=== PATIENT | female | born 1965 | race Hispanic/Latino ===

== ENCOUNTER 2020-08-07 14:32 | Inpatient (IN) | payer BC, OTHER ==
[~2020-08-07] VITALS: Ht 154.9 cm; Wt 85.9 kg
[2020-08-07 15:11] LABS: BASOPHILS % (AUTO) 0.4 % (0.0-5.0); EOSINOPHILS % (AUTO) 2.5 % (0.0-8.0); HEMATOCRIT 41.5 % (36-48); LYMPHOCYTES % (AUTO) 24.7 % (21.0-51.0); MEAN CORPUSCULAR HEMOGLOBIN 31.8 pg (27.0-33.0); MEAN CORPUSCULAR HGB CONC 33.3 g/dL (32.0-36.0); MEAN CORPUSCULAR VOLUME 95.6 fL (79-99); MONOCYTES % (AUTO) 8.4 % (3.0-13.0); NEUTROPHILS % (AUTO) 63.7 % (40.0-77.0); PLATELET COUNT (AUTO) 190 K/uL (130-400); RED BLOOD CELL COUNT(AUTO) 4.34 MIL/uL (4.00-5.50); RED CELL DISTRIBUTION WIDTH 12.3 % (11.0-15.5); WHITE BLOOD COUNT (AUTO) 7.5 K/uL (4.8-10.8)
[2020-08-07 15:30] LABS: INR 0.94 (0.85-1.15); PARTIAL THROMBOPLASTIN TIME 27.1 SEC (26.3-35.5); PROTHROMBIN TIME 10.2 SEC (9.6-11.6)
[2020-08-07 15:33] LABS: ALBUMIN 3.7 g/dL (3.5-5.0); BILIRUBIN,TOTAL 0.4 mg/dL (0.2-1.0); CREATININE 0.8 mg/dL (0.5-1.5); POTASSIUM 3.8 mmol/L (3.5-5.1); TOTAL PROTEIN, SERUM 7.7 g/dL (6.0-8.3)
[2020-08-07] MEDS ORDERED: VANCOMYCIN 1GM+NS 250ML 250 ML IV ONE (15:44)
[2020-08-07] MEDS ORDERED: GLUCAGON 1MG KIT 1 MG ML IM PRN (17:30)
[2020-08-07] MEDS ORDERED: ACETAMINOPHEN 325 MG TAB PO PRN ×2 (17:30)
[2020-08-07] MEDS ORDERED: MAG HYDROX/AL HYDROX/SIMETH ES 30 ML SUSP UDCUP PO PRN (17:30)
[2020-08-07] MEDS ORDERED: METOPROLOL TARTRATE 1 MG/ML 5ML VIAL IV PRN (17:30)
[2020-08-07] MEDS ORDERED: VANCOMYCIN 1GM+NS 250ML IV SCH (17:30)
[2020-08-07] MEDS ORDERED: DEXTROSE 50%-WATER 50 ML DISP.SYRIN IV PRN (17:30)
[2020-08-07] MEDS ORDERED: LABETALOL HCL 5 MG/ML 20ML VIAL IV PRN (17:30)
[2020-08-07] MEDS ORDERED: NITROGLYCERIN 0.4 MG SL TAB SL PRN (17:30)
[2020-08-07] MEDS ORDERED: GUAIFENESIN-DM 200/20 MG 10 ML PO PRN (17:30)
[2020-08-07] MEDS ORDERED: VANCOMYCIN PROTOCOL PER PHARMACY IV SCH (18:00)
[2020-08-07] MEDS: VANCOMYCIN 1GM+NS 250ML 250 ML IV SCH (18:00)
[2020-08-07] MEDS ORDERED: MORPHINE SULFATE 2 MG/ML 1ML SYG IVP PRN (18:45)
[2020-08-07] MEDS ORDERED: ACETAMINOPHEN-CODEINE 300/30MG TAB ONE (18:48)
[2020-08-07 18:49] LABS: APPEARANCE,URINE Cloudy (CLEAR); BILIRUBIN,URINE Negative (NEGATIVE); COLOR,URINE Yellow (YELLOW); GLUCOSE, URINE (UA) Negative (NEGATIVE); KETONES,URINE Trace mg/dL (NEGATIVE); LEUKOCYTE ESTERASE ,URINE Negative (NEGATIVE); NITRATE,URINE Negative (NEGATIVE); OCCULT BLOOD,URINE Negative (NEGATIVE); PROTEIN,URINE Negative (NEGATIVE)
[2020-08-07 19:19] LABS: BACTERIA,URINE Few /HPF (None Seen); RBC,URINE 0-1 /HPF (0-1); WBC,URINE 0-1 /HPF (0-1)
[2020-08-07 19:20] LABS: SQUAMOUS EPITHELIAL CELL,UR Moderate /HPF (0-2)
[2020-08-07] MEDS: DOXYCYCLINE 100MG+NS 250ML 250 ML IV SCH (21:00)
[2020-08-07] MEDS ORDERED: DOXYCYCLINE 100MG+NS 250ML IV SCH (21:00)
[2020-08-07] MEDS: FAMOTIDINE 20MG TAB 20 MG TAB PO SCH (21:00)
[2020-08-07] MEDS: INSULIN HUMULIN R 100 UNIT/ML 3ML SQ SCH (21:00)
[2020-08-07 22:55] VITALS: BP 160/86
--- NOTE | 2020-08-07 23:00 | NUR ---
ADMIT NOTE ADMIT TO ROOM 304 VIA STRETCHER FROM ER. PATIENT AWAKE, ALERT, OX3, NO SOB, C/O PAIN SEE PAIN ASSESSMENT AND TREATMENT, LLE WITH CELLULITIS WITH NECROSIS, SEE WOUND ASSESSMENT,FOUL SMELLING DRAINING SEROS SANGUINOUS DRAINAGE, TEACH PATIENT PLAN OF CARE AND EXPECTED OUTCOME, PATIENT VERBALIZES UNDERSTANDING VIA TEACH BACK
[2020-08-08 03:48] VITALS: BP 152/72
[2020-08-08] MEDS: VANCOMYCIN 1GM+NS 250ML 250 ML IV SCH ×2 (05:10→18:22)
[2020-08-08 05:24] LABS: BASOPHILS % (AUTO) 0.5 % (0.0-5.0); EOSINOPHILS % (AUTO) 3.5 % (0.0-8.0); HEMATOCRIT 37.8 % (36-48); LYMPHOCYTES % (AUTO) 32.4 % (21.0-51.0); MEAN CORPUSCULAR HEMOGLOBIN 31.9 pg (27.0-33.0); MEAN CORPUSCULAR HGB CONC 33.3 g/dL (32.0-36.0); MEAN CORPUSCULAR VOLUME 95.7 fL (79-99); MONOCYTES % (AUTO) 8.8 % (3.0-13.0); NEUTROPHILS % (AUTO) 54.5 % (40.0-77.0); PLATELET COUNT (AUTO) 146 K/uL (130-400); RED BLOOD CELL COUNT(AUTO) 3.95 MIL/uL (4.00-5.50); RED CELL DISTRIBUTION WIDTH 12.2 % (11.0-15.5); WHITE BLOOD COUNT (AUTO) 6.2 K/uL (4.8-10.8)
[2020-08-08 05:53] LABS: BILIRUBIN,DIRECT 0.1 mg/dL (0.0-0.3); BILIRUBIN,TOTAL 0.6 mg/dL (0.2-1.0); CREATININE 0.6 mg/dL (0.5-1.5); POTASSIUM 3.6 mmol/L (3.5-5.1); TOTAL PROTEIN, SERUM 6.5 g/dL (6.0-8.3)
[2020-08-08] MEDS: INSULIN HUMULIN R 100 UNIT/ML 3ML SQ SCH ×4 (05:57→21:00)
[2020-08-08 08:02] VITALS: BP 165/73
[2020-08-08] MEDS: FAMOTIDINE 20MG TAB 20 MG TAB PO SCH ×2 (08:46→21:09)
[2020-08-08] MEDS: ACETAMINOPHEN-CODEINE 300/30MG TAB PO PRN ×3 (08:46→23:05)
[2020-08-08] MEDS: DOXYCYCLINE 100MG+NS 250ML 250 ML IV SCH ×2 (09:00→22:56)
[2020-08-08 11:32] VITALS: BP 164/55
--- NOTE | 2020-08-08 13:02 | NUR ---
KRISTEL SAUNDERS/IA MET WITH PATIENT IN ROOM. PER PATIENT, LIVES WITH DAUGHTER, INDEPENDENT WITH ADLS, NO USE OF DME, NO PROVIDER OR HOME HEALTH, DRIVES OR OBTAINS RIDES TO DOCTORS OFFICES AND FEELS SAFE TO RETURN HOME AFTER HOSPITAL DISCHARGE. Addendum: 08/08/20 at 1303 by REILLY GUERRERO RN CM Amended: Links added.
[2020-08-08] MEDS: NIFEDIPINE 10 MG CAP PO SCH ×2 (13:38→21:00)
[2020-08-08] MEDS: LEVOFLOXACIN 500 MG/D5W 100 ML 100 ML IV SCH (13:39)
[2020-08-08] MEDS: METRONIDAZOLE 500MG/100ML BAG 100 ML IVPB SCH ×2 (13:39→21:09)
[2020-08-08 16:11] VITALS: BP 132/73
[2020-08-08] MEDS: ENOXAPARIN SODIUM 30 MG/0.3 ML SQ SCH (16:26)
--- NOTE | 2020-08-08 16:30 | NUR ---
[facility] CONSULT Patient assessed by wound healing center team. See patient wound assessment. Assessment and recommendations discussed with primary nurse. Orders entered. Education provided. Addendum: 08/08/20 at 1633 by REYNALDO HOLT RN RN/ Amended: Links added.
[2020-08-08 17:45] LABS: HEMOGLOBIN A1C 6.2 % (4.0-6.0)
[2020-08-08 20:00] VITALS: BP 127/55
[2020-08-08 23:20] VITALS: BP 151/73
[2020-08-09 03:51] VITALS: BP 113/62
[2020-08-09] MEDS: METRONIDAZOLE 500MG/100ML BAG 100 ML IVPB SCH ×3 (05:46→21:04)
[2020-08-09] MEDS: INSULIN HUMULIN R 100 UNIT/ML 3ML SQ SCH ×4 (05:54→21:00)
[2020-08-09] MEDS: ONDANSETRON HCL 4 MG/2 ML VIAL IV PRN (06:14)
[2020-08-09] MEDS: ACETAMINOPHEN-CODEINE 300/30MG TAB PO PRN ×3 (06:15→18:46)
[2020-08-09] MEDS: VANCOMYCIN 1GM+NS 250ML 250 ML IV SCH ×2 (07:18→17:22)
[2020-08-09 08:00] VITALS: BP 120/63
[2020-08-09] MEDS: DOXYCYCLINE 100MG+NS 250ML 250 ML IV SCH (10:13)
[2020-08-09] MEDS: FAMOTIDINE 20MG TAB 20 MG TAB PO SCH ×2 (10:14→21:04)
[2020-08-09] MEDS: LEVOFLOXACIN 500 MG/D5W 100 ML 100 ML IV SCH (10:14)
[2020-08-09] MEDS: ENOXAPARIN SODIUM 30 MG/0.3 ML SQ SCH (10:14)
[2020-08-09] MEDS: NIFEDIPINE 10 MG CAP PO SCH ×3 (10:14→20:37)
[2020-08-09 12:00] VITALS: BP 140/72
--- NOTE | 2020-08-09 14:00 | NUR ---
Afternoon dose of Nifedipine held d/t heart rate of 55 - per MD parameters, must hold if below 60. Will continue to monitor
[2020-08-09 16:00] VITALS: BP 122/73
--- NOTE | 2020-08-09 17:17 | NUR ---
RD NOTIFICATION Pt admitted with Left Leg cellulitis with Necrosis. Pt with 75gm CC diet order in place. No report of GI distress. Medical history of DM, HTN. Obesity Class II. Monitoring protein status and BG labs values. Left leg wound. Pt drinks alcohol and recreationally uses drugs as per EMR. Penicillin medication allergy. Recommend continue current diet order. Recommend Rolando BID, 500mg Vitamin C BID, 220mg Zinc QD for wound healing support. RD to follow up for nutrition education evaluation.
[2020-08-09 19:33] VITALS: BP 134/64
[2020-08-09 23:27] VITALS: BP 140/54
[2020-08-10 04:00] VITALS: BP 136/61
[2020-08-10] MEDS: METRONIDAZOLE 500MG/100ML BAG 100 ML IVPB SCH ×3 (05:48→21:22)
[2020-08-10] MEDS: INSULIN HUMULIN R 100 UNIT/ML 3ML SQ SCH ×4 (05:49→20:52)
[2020-08-10 05:55] LABS: BASOPHILS % (AUTO) 0.5 % (0.0-5.0); EOSINOPHILS % (AUTO) 4.9 % (0.0-8.0); HEMATOCRIT 38.1 % (36-48); LYMPHOCYTES % (AUTO) 22.4 % (21.0-51.0); MEAN CORPUSCULAR HEMOGLOBIN 31.9 pg (27.0-33.0); MEAN CORPUSCULAR HGB CONC 33.9 g/dL (32.0-36.0); MEAN CORPUSCULAR VOLUME 94.1 fL (79-99); MONOCYTES % (AUTO) 7.8 % (3.0-13.0); NEUTROPHILS % (AUTO) 63.9 % (40.0-77.0); PLATELET COUNT (AUTO) 147 K/uL (130-400); RED BLOOD CELL COUNT(AUTO) 4.05 MIL/uL (4.00-5.50); RED CELL DISTRIBUTION WIDTH 11.9 % (11.0-15.5); WHITE BLOOD COUNT (AUTO) 5.8 K/uL (4.8-10.8)
[2020-08-10 06:13] LABS: CARBON DIOXIDE 28 mmol/L (21-32); CHLORIDE 105 mmol/L (101-111); CREATININE 0.6 mg/dL (0.5-1.5); GLOMERULAR FILTR. RATE CALC 112 mL/min (>60); GLUCOSE,RANDOM 103 mg/dL (70-105); POTASSIUM 3.7 mmol/L (3.5-5.1); SODIUM SERUM 139 mmol/L (136-145); UREA NITROGEN, BLOOD 13 mg/dL (7-18)
[2020-08-10] MEDS: VANCOMYCIN 1GM+NS 250ML 250 ML IV SCH ×2 (06:43→17:47)
[2020-08-10] MEDS: ONDANSETRON HCL 4 MG/2 ML VIAL IV PRN (06:45)
[2020-08-10 07:37] LABS: ERYTHROCYTE SEDIMENTATION RATE 20 MM/HR (0-30)
[2020-08-10 08:00] VITALS: BP 161/69
[2020-08-10] MEDS: FAMOTIDINE 20MG TAB 20 MG TAB PO SCH ×2 (09:11→21:22)
[2020-08-10] MEDS: NIFEDIPINE ER 30 MG TAB PO SCH (09:11)
[2020-08-10] MEDS: ENOXAPARIN SODIUM 30 MG/0.3 ML SQ SCH (09:12)
[2020-08-10] MEDS: LEVOFLOXACIN 500 MG/D5W 100 ML 100 ML IV SCH (10:23)
[2020-08-10] MEDS ORDERED: MAGNESIUM 2GM PREMIX 50ML 50 ML IV SCH (10:30)
[2020-08-10] MEDS: LISINOPRIL 10 MG TABLET PO SCH (10:36)
[2020-08-10 12:00] VITALS: BP 134/59
[2020-08-10 16:00] VITALS: BP 143/64
[2020-08-10] MEDS: ACETAMINOPHEN-CODEINE 300/30MG TAB PO PRN (16:31)
--- NOTE | 2020-08-10 18:13 | NUR ---
DRESSING CHANGE DID DRESSING CHANGE TO LEFT LOWER EXTREMITY: CLEANSED WITH SALINE, GENTLY PAT DRY. PAINT WITH BETADINE, COVER WITH 4X4'S AND KERLIX, SECURED WITH TAPE. PATIENT TOLERATED WITHOUT INCIDENT.
[2020-08-10 19:34] VITALS: BP 116/53
[2020-08-11] VITALS: BP_SYST 138; BP_SYST 139; BP_DIAS 65; BP_DIAS 85
[2020-08-11 03:39] VITALS: BP 158/72
[2020-08-11] MEDS: METRONIDAZOLE 500MG/100ML BAG 100 ML IVPB SCH ×3 (05:36→19:54)
[2020-08-11 06:05] LABS: BASOPHILS % (AUTO) 0.8 % (0.0-5.0); EOSINOPHILS % (AUTO) 4.4 % (0.0-8.0); HEMATOCRIT 36.6 % (36-48); LYMPHOCYTES % (AUTO) 25.7 % (21.0-51.0); MEAN CORPUSCULAR HGB CONC 33.9 g/dL (32.0-36.0); MEAN CORPUSCULAR VOLUME 94.6 fL (79-99); MONOCYTES % (AUTO) 8.2 % (3.0-13.0); NEUTROPHILS % (AUTO) 60.6 % (40.0-77.0); PLATELET COUNT (AUTO) 144 K/uL (130-400); RED BLOOD CELL COUNT(AUTO) 3.87 MIL/uL (4.00-5.50); RED CELL DISTRIBUTION WIDTH 12.1 % (11.0-15.5); WHITE BLOOD COUNT (AUTO) 6.6 K/uL (4.8-10.8)
[2020-08-11] MEDS: ONDANSETRON HCL 4 MG/2 ML VIAL IV PRN (06:21)
[2020-08-11] MEDS: INSULIN HUMULIN R 100 UNIT/ML 3ML SQ SCH ×4 (06:38→19:54)
[2020-08-11 06:55] LABS: CREATININE 0.7 mg/dL (0.5-1.5); POTASSIUM 3.7 mmol/L (3.5-5.1)
[2020-08-11 07:00] LABS: CRP QUANTITATIVE 8.5 mg/L (0.00-9.0)
[2020-08-11 07:23] LABS: ERYTHROCYTE SEDIMENTATION RATE 6 MM/HR (0-30)
[2020-08-11] MEDS: VANCOMYCIN 1GM+NS 250ML 250 ML IV SCH ×2 (07:56→18:00)
[2020-08-11 08:00] VITALS: BP 140/73
[2020-08-11] MEDS: FAMOTIDINE 20MG TAB 20 MG TAB PO SCH ×2 (08:51→19:53)
[2020-08-11] MEDS: MAGNESIUM OXIDE 400 MG TABLET PO SCH (08:51)
[2020-08-11] MEDS: NIFEDIPINE ER 30 MG TAB PO SCH (08:51)
[2020-08-11] MEDS: ENOXAPARIN SODIUM 30 MG/0.3 ML SQ SCH (08:52)
[2020-08-11] MEDS: LISINOPRIL 10 MG TABLET PO SCH (08:53)
[2020-08-11] MEDS: LEVOFLOXACIN 500 MG/D5W 100 ML 100 ML IV SCH (11:28)
[2020-08-11 11:54] VITALS: BP 143/51
[2020-08-11] MEDS ORDERED: VANCOMYCIN 750MG + NS 250 ML IV SCH ×2 (12:00)
[2020-08-11] MEDS ORDERED: COMPOUND IV REFRIGERATED 1 EACH IVSOLN MISC PRN (13:45)
[2020-08-11 16:00] VITALS: BP 119/58
[2020-08-11 19:00] VITALS: BP 142/63
[2020-08-12] VITALS (24 sets, daily range): BP systolic 96–158; BP diastolic 54–81
[2020-08-12] MEDS: METRONIDAZOLE 500MG/100ML BAG 100 ML IVPB SCH ×3 (05:11→21:54)
[2020-08-12] MEDS: VANCOMYCIN 1GM+NS 250ML 250 ML IV SCH ×2 (05:11→17:41)
[2020-08-12] MEDS: INSULIN HUMULIN R 100 UNIT/ML 3ML SQ SCH ×4 (05:11→20:05)
[2020-08-12 05:22] LABS: BASOPHILS % (AUTO) 0.6 % (0.0-5.0); EOSINOPHILS % (AUTO) 3.8 % (0.0-8.0); HEMATOCRIT 37.7 % (36-48); LYMPHOCYTES % (AUTO) 28.8 % (21.0-51.0); MEAN CORPUSCULAR HEMOGLOBIN 31.2 pg (27.0-33.0); MEAN CORPUSCULAR HGB CONC 33.2 g/dL (32.0-36.0); MONOCYTES % (AUTO) 9.1 % (3.0-13.0); NEUTROPHILS % (AUTO) 57.4 % (40.0-77.0); PLATELET COUNT (AUTO) 146 K/uL (130-400); RED BLOOD CELL COUNT(AUTO) 4.01 MIL/uL (4.00-5.50); RED CELL DISTRIBUTION WIDTH 12.2 % (11.0-15.5); WHITE BLOOD COUNT (AUTO) 6.4 K/uL (4.8-10.8)
[2020-08-12 05:50] LABS: CREATININE 0.7 mg/dL (0.5-1.5); CRP QUANTITATIVE 9.3 mg/L (0.00-9.0); POTASSIUM 3.7 mmol/L (3.5-5.1)
[2020-08-12 06:38] LABS: ERYTHROCYTE SEDIMENTATION RATE 5 MM/HR (0-30)
[2020-08-12] MEDS: ONDANSETRON HCL 4 MG/2 ML VIAL IV PRN (07:53)
[2020-08-12] MEDS: ENOXAPARIN SODIUM 30 MG/0.3 ML SQ SCH (08:56)
[2020-08-12] MEDS: MAGNESIUM OXIDE 400 MG TABLET PO SCH (08:57)
[2020-08-12] MEDS: FAMOTIDINE 20MG TAB 20 MG TAB PO SCH ×2 (08:57→20:03)
[2020-08-12] MEDS: NIFEDIPINE ER 30 MG TAB PO SCH (09:00)
[2020-08-12] MEDS: LISINOPRIL 10 MG TABLET PO SCH (09:00)
[2020-08-12] MEDS: LEVOFLOXACIN 500 MG/D5W 100 ML 100 ML IV SCH (10:29)
[2020-08-12] MEDS ORDERED: SODIUM CHLORIDE 0.9% 1000ML 1,000 ML IV ONE (13:30)
[2020-08-12] MEDS ORDERED: DEXAMETHASONE SOD PHOSPHATE 10MG/ML 1ML VIAL ONE (13:57)
[2020-08-12] MEDS ORDERED: LIDOCAINE PF 2% 5ML ABBOJECT ONE (13:58)
[2020-08-12] MEDS ORDERED: PROPOFOL 10 MG/ML 20ML VIAL IV ONE (13:58)
[2020-08-12] MEDS ORDERED: MIDAZOLAM HCL 1 MG/ML 2ML VIAL ONE (13:58)
[2020-08-12] MEDS ORDERED: ONDANSETRON HCL 4 MG/2 ML VIAL ONE (13:58)
[2020-08-12] MEDS ORDERED: FENTANYL CITRATE PF 50 MCG/1 ML 2ML VIAL ONE (13:58)
[2020-08-12] MEDS ORDERED: MEPERIDINE-PF 50 MG/ML SYG ONE (14:21)
--- NOTE | 2020-08-12 20:00 | NUR ---
PATIENT RECEIVED IN BED, AAOX4, NO ACUTE DISTRESS NOTED. S/P DEBRIDEMENT TO LEFT LOWER EXT WOUND. DRESSING IS D/I. V/S STABLE. POC DISCUSSED WITH PATIENT. PLAN FOR DRESSING CHANGES TOMORROW. VOICED UNDERSTANDING. CALL NEAL IS WITHIN REACH, WILL CONT TO MONITOR.
[2020-08-12] MEDS: ACETAMINOPHEN-CODEINE 300/30MG TAB PO PRN (22:47)
[2020-08-13 03:32] VITALS: BP 144/60
[2020-08-13] MEDS: METRONIDAZOLE 500MG/100ML BAG 100 ML IVPB SCH ×2 (05:18→13:26)
[2020-08-13] MEDS: INSULIN HUMULIN R 100 UNIT/ML 3ML SQ SCH ×4 (05:50→20:16)
[2020-08-13] MEDS: VANCOMYCIN 1GM+NS 250ML 250 ML IV SCH (06:17)
[2020-08-13] MEDS ORDERED: COMPOUND IV REFRIGERATED 1 EACH IVSOLN MISC PRN (07:15)
[2020-08-13 08:11] VITALS: BP 156/64
[2020-08-13] MEDS: NIFEDIPINE ER 30 MG TAB PO SCH (09:00)
[2020-08-13] MEDS: LEVOFLOXACIN 500 MG/D5W 100 ML 100 ML IV SCH (09:00)
[2020-08-13] MEDS: LISINOPRIL 10 MG TABLET PO SCH (09:01)
[2020-08-13] MEDS: MAGNESIUM OXIDE 400 MG TABLET PO SCH (09:01)
[2020-08-13] MEDS: FAMOTIDINE 20MG TAB 20 MG TAB PO SCH ×2 (09:01→20:16)
[2020-08-13] MEDS: ENOXAPARIN SODIUM 30 MG/0.3 ML SQ SCH (09:02)
[2020-08-13] MEDS: ACETAMINOPHEN-CODEINE 300/30MG TAB PO PRN ×2 (09:05→14:29)
[2020-08-13 11:33] VITALS: BP 137/51
[2020-08-13] MEDS ORDERED: HONEY 1 APPL/ML TUBE TP SCH (11:45)
[2020-08-13] MEDS ORDERED: HONEY 1 APPL/ML TUBE TP ONE (11:53)
[2020-08-13] MEDS: MORPHINE SULFATE 4 MG/1ML SYG IV PRN ×2 (13:36→20:21)
--- NOTE | 2020-08-13 15:06 | NUR ---
RD NOTIFICATION Pt admitted due to left leg cellulitis RD consulted for DM education At time of visit, pt in room not feeling well. RD to follow with education. Educational material left in pt's room Pt is s/p debridement 08/12/20 Pt is currently on a 75 gm CC diet and consuming 75-100% RD RECOMMENDATION: Continue current diet order Monitor PO intake F/U with diet education Pt may benefit from [facility]VI LABS: BG 149, A1C 6.2, ALB 3.0, TOT PRO 6.5, TOT CA 8.5 Addendum: 08/13/20 at [address] Amended: Links added.
[2020-08-13 16:31] VITALS: BP 144/65
[2020-08-13] MEDS ORDERED: VANCOMYCIN 1.25 GM in SODIUM CHLORIDE 0.9% 250 ML IV SCH (18:00)
[2020-08-13 20:05] VITALS: BP 126/57
[2020-08-13 23:43] VITALS: BP 131/57
[2020-08-14 03:52] VITALS: BP 143/49
[2020-08-14] MEDS: INSULIN HUMULIN R 100 UNIT/ML 3ML SQ SCH ×4 (05:58→21:00)
[2020-08-14 08:00] VITALS: BP 130/56
[2020-08-14] MEDS: MAGNESIUM OXIDE 400 MG TABLET PO SCH (08:25)
[2020-08-14] MEDS: NIFEDIPINE ER 30 MG TAB PO SCH (08:25)
[2020-08-14] MEDS: FAMOTIDINE 20MG TAB 20 MG TAB PO SCH ×2 (08:26→20:05)
[2020-08-14] MEDS: LISINOPRIL 10 MG TABLET PO SCH (08:26)
[2020-08-14] MEDS: ENOXAPARIN SODIUM 30 MG/0.3 ML SQ SCH (08:27)
--- NOTE | 2020-08-14 08:30 | NUR ---
Patient awake, alert, oriented x3. Wound vac to left medial leg suctioning at 125mmhg and tolerating well. During assessment and questionnaire patient reported has not had a BM since last week. Will obtain orders for a stool softener. Patient was assisted to the restroom using the walker and tolerated well.
[2020-08-14] MEDS ORDERED: LACTULOSE 20 GM/30 ML UDCUP PO PRN (09:00)
[2020-08-14] MEDS: LEVOFLOXACIN 500 MG/D5W 100 ML 100 ML IV SCH (10:00)
[2020-08-14 11:00] VITALS: BP 163/60
[2020-08-14 16:00] VITALS: BP 135/64
--- NOTE | 2020-08-14 16:26 | NUR ---
DISCUSSED [facility] WOUND VAC PROGRAM WITH PATIENT PATIENT FILLED OUT THE FORM. ALL ZEROS, ADVISED HER THAT WE NEEDED SOMETHING MORE SPECIFIC STATES SHE HAS NO INCOME, IS A , MOVED IN WITH HER DAUGHTER AND SON IN LAW, HAS NO BILLS DOES NO CONTRIBUTIONS TO THE HOUSEHOLD EITHER STATES SHE HAS NO IDEA OF THEIR INCOME AND DOES NOT WANT TO ASK HELP SYBIL NOTES STATES NO SAVINGS OR CHECKING ACCOUNT WILL SEND THE WOUND VAC ORDER WITH THESE NOTES AND THE AMY APPLICATION PATIENT WILL BE GOING HOME WITH W[facility] UNTIL WEDNESDAY WHEN SHE WILL BE SEEN AT THE [facility] BY DR. CORREIA, HOPING FOR A WOUND VAC THEN
[2020-08-14 20:08] VITALS: BP 135/65
[2020-08-15 00:20] VITALS: BP 125/69
[2020-08-15 04:24] VITALS: BP 128/55
[2020-08-15] MEDS: INSULIN HUMULIN R 100 UNIT/ML 3ML SQ SCH ×2 (07:30→11:30)
[2020-08-15 08:00] VITALS: BP 129/59
[2020-08-15] MEDS: MAGNESIUM OXIDE 400 MG TABLET PO SCH (08:44)
[2020-08-15] MEDS: ENOXAPARIN SODIUM 30 MG/0.3 ML SQ SCH (08:44)
[2020-08-15] MEDS: FAMOTIDINE 20MG TAB 20 MG TAB PO SCH (08:44)
[2020-08-15] MEDS: LISINOPRIL 10 MG TABLET PO SCH (08:45)
[2020-08-15] MEDS: NIFEDIPINE ER 30 MG TAB PO SCH (08:45)
[2020-08-15] MEDS ORDERED: LEVO750T46 PO (10:57)
[2020-08-15] MEDS ORDERED: ACET1TAB25 PO (11:04)
[2020-08-15 12:00] VITALS: BP 124/48
--- NOTE | 2020-08-15 12:21 | NUR ---
RD TEACHING NOTE RD followed with DM teaching. Pt refused education due to previous exposure to DM teaching RD left handouts in pt's room on 08/13/[address] as nutritional concerns arise, Thank you Addendum: 08/15/20 at [address] Amended: Links added.
[2020-08-15] MEDS ORDERED: LEVOFLOXACIN 750 MG TABLET PO SCH (12:30)
[2020-08-15] MEDS ORDERED: ACETAMINOPHEN-CODEINE 300/30MG TAB PO ONE (12:30)
[2020-08-15] MEDS ORDERED: NIFE-40 PO (16:31)
[2020-08-15] MEDS ORDERED: LISI10TA7 PO (16:31)
--- NOTE | 2020-08-15 16:44 | NUR ---
DISCHARGE PATIENT GIVEN DISCHARGE INSTRUCTIONS VIA TEACH BACK. 22G PIV TO LEFT HAND DISCONTINUED, TIP INTACT. PATIENT TO FOLLOW UP WITH DR[facility]20 AT 0830 FOR WOUND CARE TO LLE. RX GIVEN FOR LEVOFLOXACIN 750MG 1 TAB PO DAILY X 10 DAYS. RX FOR TYLENOL #3 2 TABS PO TID/PRN. INSTRUCTED AND DEMONSTRATED WOUND CARE TO LLE, PATIENT VOICED UNDERSTANDING. PATIENT STABLE AT THIS TIME, WHEELED TO [facility] BY JAYDE MELGAR.
--- NOTE | 2020-08-16 11:56 | NUR ---
TRANSITIONAL CARE -- POST-DISCHARGE NOTE NO ANSWER at daughter's phone. Patient primary's phone is incorrect number.
== END 2020-08-15 16:45 | disposition home or self-care (01) | DRG 264 ==
LOC: EDH 14:32 → EDHIP 14:33 → UNDOADMIN 17:13 → EDHIP 17:13 → 3AH 21:53
PROVIDERS: ADMIT Hospitalist; ATTEND Hospitalist
PROC: 0JBP0ZZ Excision of Left Lower Leg Subcutaneous Tissue and Fascia, Open Approach (ICD-10-PCS; principal; 2020-08-12 13:52)
DX: E11.52 Type 2 diabetes mellitus with diabetic peripheral angiopathy with gangrene (principal); L03.116 Cellulitis of left lower limb; I96 Gangrene, not elsewhere classified; I16.0 Hypertensive urgency; E66.01 Morbid (severe) obesity due to excess calories; E11.9 Type 2 diabetes mellitus without complications; F10.10 Alcohol abuse, uncomplicated; F19.90 Other psychoactive substance use, unspecified, uncomplicated; F17.210 Nicotine dependence, cigarettes, uncomplicated; I10 Essential (primary) hypertension; Z68.35 Body mass index [BMI] 35.0-35.9, adult; Z88.0 Allergy status to penicillin; Z91.19 Patient's noncompliance with other medical treatment and regimen; Z91.14 Patient's other noncompliance with medication regimen
CPT/HCPCS: 36415; 73218; 73590; 80048; 80053; 80076; 80202; 81001; 82948; 83036; 83605; 83735; 84100; 84145; 85025; 85610; 85651; 85730; 86140; 87040; 87070; 87076; 87077; 87186; 87205; 93971; A6454; G0378; J1100; J1650; J1956; J2001; J2175; J2250; J2270; J2405; J2704; J3010; J3370; J3475; J3490; J7030; J7050

== ENCOUNTER → 2020-08-16 | Outpatient (CLI) | payer SELFPAY ==
[~2020-08-16] MED LIST: ACET1TAB25 PO; LEVO750T46 PO; LISI10TA7 PO; NIFE-40 PO
== END | disposition home or self-care (01) ==
LOC: WHH 08:21
PROVIDERS: ATTEND Family Medicine
DX: T81.89XA Other complications of procedures, not elsewhere classified, initial encounter (principal); E11.628 Type 2 diabetes mellitus with other skin complications; I10 Essential (primary) hypertension; E66.9 Obesity, unspecified; F10.120 Alcohol abuse with intoxication, uncomplicated; F14.20 Cocaine dependence, uncomplicated; F17.210 Nicotine dependence, cigarettes, uncomplicated; Z68.36 Body mass index [BMI] 36.0-36.9, adult; Y83.8 Other surgical procedures as the cause of abnormal reaction of the patient, or of later complication, without mention of misadventure at the time of the procedure; Y92.238 Other place in hospital as the place of occurrence of the external cause
CPT/HCPCS: 11042; 11045

== ENCOUNTER → 2020-08-22 | Outpatient (CLI) | payer SELFPAY ==
[~2020-08-22] MED LIST changes: +LIDOCAINE HCL 2% JELLY 5 ML TP ONE
== END | disposition home or self-care (01) ==
LOC: WHH 10:15
PROVIDERS: ATTEND Family Medicine
DX: T81.89XD Other complications of procedures, not elsewhere classified, subsequent encounter (principal); E11.628 Type 2 diabetes mellitus with other skin complications; I10 Essential (primary) hypertension; E66.9 Obesity, unspecified; F10.120 Alcohol abuse with intoxication, uncomplicated; F14.20 Cocaine dependence, uncomplicated; F17.210 Nicotine dependence, cigarettes, uncomplicated; Z68.36 Body mass index [BMI] 36.0-36.9, adult; Y83.8 Other surgical procedures as the cause of abnormal reaction of the patient, or of later complication, without mention of misadventure at the time of the procedure
CPT/HCPCS: 11042; 11045

== ENCOUNTER → 2020-09-03 | Outpatient (CLI) | payer SELFPAY | END | disposition home or self-care (01) | LOC: WHH 10:15 | PROVIDERS: ATTEND Family Medicine | DX: T81.89XD Other complications of procedures, not elsewhere classified, subsequent encounter (principal); E11.628 Type 2 diabetes mellitus with other skin complications; I10 Essential (primary) hypertension; E66.9 Obesity, unspecified; F10.120 Alcohol abuse with intoxication, uncomplicated; F14.20 Cocaine dependence, uncomplicated; F17.210 Nicotine dependence, cigarettes, uncomplicated; Z68.36 Body mass index [BMI] 36.0-36.9, adult; Y83.8 Other surgical procedures as the cause of abnormal reaction of the patient, or of later complication, without mention of misadventure at the time of the procedure | CPT/HCPCS: 11042; 11045; 97605 ==

== ENCOUNTER → 2020-09-10 | Outpatient (CLI) | payer SELFPAY ==
[~2020-09-10] MED LIST changes: -LIDOCAINE HCL 2% JELLY 5 ML TP ONE
== END | disposition home or self-care (01) ==
LOC: WHH 13:00
PROVIDERS: ATTEND Family Medicine
DX: T81.89XD Other complications of procedures, not elsewhere classified, subsequent encounter (principal); E11.628 Type 2 diabetes mellitus with other skin complications; I10 Essential (primary) hypertension; E66.9 Obesity, unspecified; F10.120 Alcohol abuse with intoxication, uncomplicated; F14.20 Cocaine dependence, uncomplicated; F17.210 Nicotine dependence, cigarettes, uncomplicated; Z68.36 Body mass index [BMI] 36.0-36.9, adult; Y83.8 Other surgical procedures as the cause of abnormal reaction of the patient, or of later complication, without mention of misadventure at the time of the procedure
CPT/HCPCS: 97605; 99211

== ENCOUNTER → 2020-09-17 | Outpatient (CLI) | payer SELFPAY | END | disposition home or self-care (01) | LOC: WHH 14:00 | PROVIDERS: ATTEND Family Medicine | DX: S81.802D Unspecified open wound, left lower leg, subsequent encounter (principal); E11.628 Type 2 diabetes mellitus with other skin complications; I10 Essential (primary) hypertension; E66.9 Obesity, unspecified; F10.120 Alcohol abuse with intoxication, uncomplicated; F14.20 Cocaine dependence, uncomplicated; F17.210 Nicotine dependence, cigarettes, uncomplicated; Z68.36 Body mass index [BMI] 36.0-36.9, adult; X58.XXXD Exposure to other specified factors, subsequent encounter | CPT/HCPCS: 99211 ==

== ENCOUNTER → 2020-09-20 | Outpatient (CLI) | payer SELFPAY ==
[~2020-09-20] MED LIST changes: +LIDOCAINE HCL 2% JELLY 5 ML TP ONE
== END | disposition home or self-care (01) ==
LOC: WHH 08:00
PROVIDERS: ATTEND Family Medicine
DX: S81.802D Unspecified open wound, left lower leg, subsequent encounter (principal); E11.628 Type 2 diabetes mellitus with other skin complications; I10 Essential (primary) hypertension; E66.9 Obesity, unspecified; F10.120 Alcohol abuse with intoxication, uncomplicated; F14.20 Cocaine dependence, uncomplicated; F17.210 Nicotine dependence, cigarettes, uncomplicated; Z68.36 Body mass index [BMI] 36.0-36.9, adult; X58.XXXD Exposure to other specified factors, subsequent encounter
CPT/HCPCS: 11042

== ENCOUNTER → 2020-09-27 | Outpatient (CLI) | payer SELFPAY | END | disposition home or self-care (01) | LOC: WHH 08:15 | PROVIDERS: ATTEND Family Medicine | DX: S81.802D Unspecified open wound, left lower leg, subsequent encounter (principal); E11.628 Type 2 diabetes mellitus with other skin complications; I10 Essential (primary) hypertension; E66.9 Obesity, unspecified; F10.120 Alcohol abuse with intoxication, uncomplicated; F14.20 Cocaine dependence, uncomplicated; F17.210 Nicotine dependence, cigarettes, uncomplicated; Z68.36 Body mass index [BMI] 36.0-36.9, adult; X58.XXXD Exposure to other specified factors, subsequent encounter | CPT/HCPCS: 11042; A6021; A6197 ==

== ENCOUNTER → 2020-10-04 | Outpatient (CLI) | payer SELFPAY | END | disposition home or self-care (01) | LOC: WHH 08:00 | PROVIDERS: ATTEND Family Medicine | DX: S81.802D Unspecified open wound, left lower leg, subsequent encounter (principal); E11.628 Type 2 diabetes mellitus with other skin complications; E11.52 Type 2 diabetes mellitus with diabetic peripheral angiopathy with gangrene; I96 Gangrene, not elsewhere classified; I10 Essential (primary) hypertension; E66.9 Obesity, unspecified; F10.120 Alcohol abuse with intoxication, uncomplicated; F14.20 Cocaine dependence, uncomplicated; F17.210 Nicotine dependence, cigarettes, uncomplicated; Z68.36 Body mass index [BMI] 36.0-36.9, adult; X58.XXXD Exposure to other specified factors, subsequent encounter | CPT/HCPCS: 11042; A6021; A6197 ==

== ENCOUNTER → 2020-10-10 | Outpatient (CLI) | payer SELFPAY ==
[~2020-10-10] MED LIST changes: +LISI10TA24 PO; -LISI10TA7 PO
== END | disposition home or self-care (01) ==
LOC: WHH 08:00
PROVIDERS: ATTEND Family Medicine
DX: S81.802D Unspecified open wound, left lower leg, subsequent encounter (principal); E11.628 Type 2 diabetes mellitus with other skin complications; E11.52 Type 2 diabetes mellitus with diabetic peripheral angiopathy with gangrene; I96 Gangrene, not elsewhere classified; I10 Essential (primary) hypertension; E66.9 Obesity, unspecified; F10.120 Alcohol abuse with intoxication, uncomplicated; F14.20 Cocaine dependence, uncomplicated; F17.210 Nicotine dependence, cigarettes, uncomplicated; Z68.36 Body mass index [BMI] 36.0-36.9, adult; X58.XXXD Exposure to other specified factors, subsequent encounter
CPT/HCPCS: 11042; A6021; A6197

== ENCOUNTER → 2020-10-24 | Outpatient (CLI) | payer SELFPAY | END | disposition home or self-care (01) | LOC: WHH 08:00 | PROVIDERS: ATTEND Family Medicine | DX: S81.802D Unspecified open wound, left lower leg, subsequent encounter (principal); E11.628 Type 2 diabetes mellitus with other skin complications; E11.51 Type 2 diabetes mellitus with diabetic peripheral angiopathy without gangrene; I96 Gangrene, not elsewhere classified; I10 Essential (primary) hypertension; E66.9 Obesity, unspecified; F10.120 Alcohol abuse with intoxication, uncomplicated; F14.20 Cocaine dependence, uncomplicated; F17.210 Nicotine dependence, cigarettes, uncomplicated; Z68.36 Body mass index [BMI] 36.0-36.9, adult; X58.XXXD Exposure to other specified factors, subsequent encounter | CPT/HCPCS: 11042; A6021; A6197 ==

== ENCOUNTER → 2020-11-07 | Outpatient (CLI) | payer SELFPAY | END | disposition home or self-care (01) | LOC: WHH 08:00 | PROVIDERS: ATTEND Family Medicine | DX: S81.802D Unspecified open wound, left lower leg, subsequent encounter (principal); E11.628 Type 2 diabetes mellitus with other skin complications; E11.52 Type 2 diabetes mellitus with diabetic peripheral angiopathy with gangrene; I96 Gangrene, not elsewhere classified; I10 Essential (primary) hypertension; E66.9 Obesity, unspecified; F10.120 Alcohol abuse with intoxication, uncomplicated; F14.20 Cocaine dependence, uncomplicated; F17.210 Nicotine dependence, cigarettes, uncomplicated; Z68.36 Body mass index [BMI] 36.0-36.9, adult; X58.XXXD Exposure to other specified factors, subsequent encounter | CPT/HCPCS: 97597 ==

== ENCOUNTER 2024-05-01 20:04 | Emergency (ER) | payer SELFPAY ==
[~2024-05-01] VITALS: Ht 152.4 cm; Wt 98.9 kg
[~2024-05-01 20:04] MED LIST changes: +ACET-2079 PO; -ACET1TAB25 PO; +LEVO750T39 PO; -LEVO750T46 PO; -LIDOCAINE HCL 2% JELLY 5 ML TP ONE
[2024-05-01 20:37] VITALS: BP 161/67; PULSE 68; RESP 18; O2SAT 99
[2024-05-01] MEDS ORDERED: TobRAMYCin/DEXAmethASONE OPTH SUSP 2.5 ML BOT OU SCH ×2 (21:00)
== END 2024-05-01 21:41 | disposition home or self-care (01) ==
LOC: EDH 20:04
DX: H10.89 Other conjunctivitis (principal); H57.13 Ocular pain, bilateral; Z79.899 Other long term (current) drug therapy; Z98.890 Other specified postprocedural states; Z88.0 Allergy status to penicillin
CPT/HCPCS: 99281

== ENCOUNTER 2025-07-11 10:34 | Inpatient (IN) | payer SELFPAY ==
[~2025-07-11] VITALS: Ht 152.4 cm; Wt 100.7 kg
[~2025-07-11 10:34] MED LIST changes: -LEVO750T39 PO; +LEVO750T90 PO
--- NOTE | 2025-07-11 10:45 | ERN ---
General Chief Complaint: Bloody Stool Stated Complaint: BLOODY STOOL Time Seen by MD: 10:36 Source: patient History of Present Illness Initial Comments Patient in his is a 59-year-old female coming in complaining of bloody stools. Patient states he is a daily alcohol drinker in his here for further evaluation. Along with the she states he has been feeling nauseousness as well. Allergies: Coded Allergies: Penicillins (Verified Allergy, 10/25/12) Home Meds Active Scripts Nifedipine (Nifedipine ER) 30 Mg Tab.er.24, 60 MG PO DAILY for 30 Days, #30 TAB Prov:WOOD EDWARDS MD 08/15/20 Lisinopril (Lisinopril) 10 Mg Tablet, 20 MG PO DAILY for 30 Days, #30 TAB Prov:WOOD EDWARDS MD 08/15/20 Acetaminophen with Codeine (Acetaminophen-Cod #3 Tablet) 1 Each Tablet, 2 EACH PO TID PRN for PAIN LEVEL 6 TO 10 for 3 Days, #18 TAB Prov:WOOD EDWARDS MD 08/15/20 Levofloxacin (Levofloxacin) 750 Mg Tablet, 750 MG PO 1000 for 10 Days, #10 TAB Prov:WOOD EDWARDS MD 08/15/20 Past Medical History Past Medical History: Other Medical History Other: ALCOHOL ABUSE Past Surgical History: Surgical History Other: LEFT LEG SX ROS Dictation CONSTITUTIONAL: No chills, no fever, no weakness, no diaphoresis, no malaise. HEAD/FACE: No signs of trauma. EENT: No eye pain, no blurred vision, no tearing, no double vision, no ear pain, no ear discharge, no nose pain, no nasal congestion, no throat pain, no throat swelling, no mouth pain. RESPIRATORY: No cough, no orthopnea, no SOB, no stridor, no wheezing. CARDIOVASCULAR: No chest pain, no edema, no palpitations, no syncope. GASTROINTESTINAL/ABDOMINAL: No abdominal pain, no constipation, no diarrhea, nausea, vomiting. GENITOURINARY: No abnormal discharge, no dysuria, no frequent urination, no hematuria. No complaints of pain in the genitals. MUSCULOSKELETAL: No back pain, no gout, no joint pain, no joint swelling, no muscle pain, no muscle stiffness, no neck pain. INTEGUMENTARY: No change in color, no change in hair/nails, no dryness, no lesion, no lumps, no rash. NEUROLOGICAL/PSYCH: No anxiety, not depressed, no emotional problem, no headache, no numbness, no pre-existing deficit, no history of seizures, no tremors, no weakness. HEMATOLOGIC/LYMPHATIC: Not anemic, no history of blood clots, no apparent bleeding, no bruising, glands not swollen. All Systems Negative, Except as Noted. Physical Exam Physical Exam Dictation VITAL SIGNS: Reviewed. GENERAL APPEARANCE: Alert, oriented x3, no acute distress, obese. HEAD AND FACE: Non-traumatic. EYES: PERRL, pink conjunctivas, eyelid no trauma, anterior chamber clear. EARS: Pinnas intact and no signs of trauma or erythema. Ear canals clear and no discharge. TMs no erythema. NOSE: No discharge, no bleeding. OROPHARYNX: Mouth normal, teeth no caries, tongue pink. Pharynx clear, no erythema. Tonsils no exudates, no abscesses noted. Mucous membrane moist. NECK: Supple, non-tender, no thyromegaly, no masses, no JVD, no bruits. BREAST: Deferred. CHEST: No tenderness, no crepitus, no paradoxical movement, no retractions. LUNGS: Clear, well-ventilated, symmetric, no rales, no wheezing, no rhonchi, no stridor, good breath sounds bilaterally. HEART: Regular rate, regular rhythm, no murmur, no gallops. VASCULAR: No peripheral edema. ABDOMEN: Soft, positive bowel sounds, nondistended, no guarding, nontender, no rebound, no masses no hepatomegaly, no splenomegaly, no Taylor's sign, no hernias. RECTAL: Deferred. GENITAL: Deferred. NEUROLOGICAL: Normal speech, gross motor function intact, gross sensory function intact. MUSCULOSKELETAL: Neck nontender, full range of motion, back nontender, full range of motion. EXTREMITIES: Nontender, full range of motion. SKIN: Color pink, dry, no turgor, no rash, no lacerations, no abrasions, no contusions. LYMPHATICS: Deferred. Results Laboratory and Microbiology Lab and Micro Result Laboratory Tests Test 07/11/25 10:53 07/11/25 11:15 07/11/25 11:19 White Blood Count 5.4 K/uL (4.8-10.8) Red Blood Count 3.70 MIL/uL (4.00-5.50) L Hemoglobin 12.5 g/dL (12.0-16.0) Hematocrit 36.1 % (36-48) Mean Corpuscular Volume 97.6 fL (79-99) Mean Corpuscular Hemoglobin 33.8 pg (27.0-33.0) H Mean Corpuscular Hemoglobin Concent 34.6 g/dL (32.0-36.0) Red Cell Distribution Width 14.0 % (11.0-15.5) Platelet Count 58 K/uL (130-400) L Mean Platelet Volume 9.5 fL (7.5-10.5) Immature Granulocyte % (Auto) 0.6 % (0-1) Neutrophils (%) (Auto) 74.1 % (40.0-77.0) Lymphocytes (%) (Auto) 15.0 % (21.0-51.0) L Monocytes (%) (Auto) 9.5 % (3.0-13.0) Eosinophils (%) (Auto) 0.4 % (0.0-8.0) Basophils (%) (Auto) 0.4 % (0.0-5.0) Neutrophils # (Auto) 4.0 K/uL (1.8-7.7) Lymphocytes # (Auto) 0.8 K/uL (1.0-4.8) L Monocytes # (Auto) 0.5 K/uL (0.1-1.0) Eosinophils # (Auto) 0.02 K/uL (0.00-0.70) Basophils # (Auto) 0.02 K/uL (0.00-0.20) Absolute Immature Granulocyte (auto 0.03 K/uL (0-1) Nucleated Red Blood Cells 0.0 % (0.0-0.19) Platelet Morphology Comment See comments Sodium Level 137 mmol/L (136-145) Potassium Level 4.3 mmol/L (3.5-5.1) Chloride Level 99 mmol/L (101-111) L Carbon Dioxide Level 33 mmol/L (21-32) H Blood Urea Nitrogen 23 mg/dL (7-18) H Creatinine 0.8 mg/dL (0.5-1.0) Glomerular Filtration Rate Calc 86 mL/min (>90) Random Glucose 204 mg/dL (70-105) H Total Calcium 8.5 mg/dL (8.5-10.1) Total Bilirubin 1.4 mg/dL (0.2-1.0) H Aspartate Amino Transf (AST/SGOT) 36 U/L (10-37) Alanine Aminotransferase (ALT/SGPT) 46 U/L (12-78) Alkaline Phosphatase 76 U/L (50-136) Total Creatine Kinase 50 U/L (21-232) Troponin I High Sensitivity 10 ng/L (4-50) Total Protein 6.9 g/dL (6.0-8.3) Albumin 3.3 g/dL (3.5-5.0) L Lipase 25 U/L (16-77) Serum Alcohol < 3 mg/dL (0-10) Stool Occult Blood POSITIVE (NEGATIVE) H Urine Color LIGHT-YELLOW (YELLOW) Urine Appearance CLEAR (CLEAR) Urine pH 7.0 (5.0-8.0) Urine Specific [place] 1.018 (1.001-1.031) Urine Protein NEGATIVE mg/dL (NEGATIVE) Urine Glucose (UA) 300 mg/dL (NEGATIVE) H Urine Ketones 20 mg/dL (NEGATIVE) H Urine Occult Blood LARGE (NEGATIVE) H Urine Nitrate NEGATIVE (NEGATIVE) Urine Bilirubin NEGATIVE mg/dL (NEGATIVE) Urine Urobilinogen 4.0 mg/dL (0.2-1.0) H Urine Leukocyte Esterase NEGATIVE [place]/uL Urine RBC 2-5 /HPF (0-1) H Urine WBC 2-5 /HPF (0-1) H Urine Squamous Epithelial Cells FEW /HPF (0-2) Urine Bacteria None /HPF (None Seen) Labs Reviewed?: Yes EKG/XRAY/US/CT/MRI EKG Comment 07/11/2025 time 11:21 a.m. Ventricular rate 93 Sinus rhythm PA [address] wave elevation or depression CT Scan Comment [place] [id number] [address] IMAGING REPORT Signed PATIENT: ELEUTERIO CORREIA MR#: [id number] : 1965 SEX: F AGE: 59 LOCATION: [facility] ORDER [id number] STATUS: REG ER REPORT#: [id number] SERVICE 1038 REASON: ABD PAIN ORDERING PHYSICIAN: KYLAH KENYON MD PROCEDURE: ABD PEL WO - CT ABDOMEN/PELVIS W/O CONTRAST EXAM: CT Abdomen and Pelvis Without IV contrast CLINICAL HISTORY: ABD PAIN TECHNIQUE: Axial computed tomography images of the abdomen and pelvis without intravenous contrast. CONTRAST: No IV contrast. COMPARISON: None provided. FINDINGS: LUNG BASES: The lung bases appear clear. No pleural effusions are seen. LIVER: Unremarkable. GALLBLADDER AND BILE DUCTS: Cholelithiasis versus milk of calcium layering dependently within the gallbladder lumen. No pericholecystic edema or visible biliary ductal dilatation. PANCREAS: Mild abnormal soft tissue attenuation stranding surrounding the pancreas and extending down portion of the bilateral anterior pararenal space SPLEEN: Unremarkable. ADRENAL GLANDS: Unremarkable. KIDNEYS, URETERS, AND BLADDER: The kidneys appear within normal limits. There is no hydronephrosis or hydroureter. No urinary calculi are seen. STOMACH AND BOWEL: Unremarkable appearance of the stomach and bowel. No evidence of bowel obstruction. No evidence suggesting enteritis or colitis. APPENDIX: No evidence of acute appendicitis on CT examination. PERITONEUM: No free fluid. No free air. LYMPH NODES: No lymphadenopathy is evident. REPRODUCTIVE: Unremarkable as visualized. VASCULATURE: No evidence of abdominal aortic aneurysm. More calcific atherosclerosis splenic artery BONES: No aggressive appearing osseous lesion. No acute osseous pathology evident. IMPRESSION: 1. Mild pancreatic inflammation with peripancreatic stranding. Findings concerning for pancreatitis. Recommend repeat CT abdomen pelvis with IV contrast for further evaluation 2. Cholelithiasis versus milk of calcium in the gallbladder. 3. Splenic artery calcific atherosclerosis. /[place] DICTATED BY: MAINOR COREAS MD DATE: 07/11/25 1400 ELECTRONICALLY SIGNED BY: MAINOR COREAS MD DATE: 07/11/25 1400 MDM MDM: Differential diagnosis: GI bleed, history of liver cirrhosis, history of alcohol abuse, Rationale: Tests considered and ordered secondary to shared decision making include: Previous outside records reviewed: Old ER visits. Risk of complication and/or morbidity or mortality of patient management: None Medications-Per medication reconciliation Need for hospitalization: Patient does meet criteria for hospitalization. Need for emergency major/minor surgery: No There are no social concerns with this patient. Prescription drug management Prescriptions will include symptomatic care Patient's prior external medical records from other ER visits were reviewed by me as indicated. Prior testing and results from previous visits were reviewed. Prior tests were taken into account with medical decision making and resource utilization, independent historian/historians were used to obtain complete medical history. I independently interpreted the test that were performed, results were reviewed by me and considered findings on radiology if ordered. Medical management and examination interpretation discussions were had by me with other qualified healthcare professionals as indicated for the patient's care. Patient is a 59-year-old female coming in complaining of GI bleed. Patient also states that she has a extensive history of alcohol abuse. CT of the abdomen did not disclose acute findings but based on her symptoms and presentation patient will be admitted under the care of hospitalist group for ongoing management. ED Course Orders Procedure Category Date Status Time Cbc With Differential LAB 07/11/25 Complete 10:38 Comprehensive LAB 07/11/25 Complete Metabolic Panel 10:38 Troponin I High LAB 07/11/25 Complete Sensitivity 10:38 Urinalysis Profile LAB 07/11/25 Complete 10:38 Occult Blood Stool LAB 07/11/25 Complete Single Only 10:38 12 Lead Ekg Tracing- EKG 07/11/25 Complete Technical 10:38 Ondansetron 4mg Inj PHA 07/11/25 Complete (Zofran 4mg Inj) 11:00 Pantoprazole 40mg Inj PHA 07/11/25 Complete (Protonix 40mg Inj 11:00 Creatine Kinase, Total LAB 07/11/25 Complete 10:38 Ct Abdomen/Pelvis W/O CT 07/11/25 Resulted Contrast 10:38 Lipase LAB 07/11/25 Complete 10:38 Alcohol, Blood LAB 07/11/25 Complete 10:45 Current Medications Medications (Trade) Dose Ordered Sig/Raheel Route PRN Reason Start Time Stop Time Status Last Admin Dose Admin Ondansetron HCl (zoFRAN 4MG INJ) 4 mg ONCE ONCE IVP 07/11/25 11:00 07/11/25 11:01 DC 07/11/25 11:02 Pantoprazole Sodium (PROTonix 40MG INJ) 40 mg ONCE ONCE IVP 07/11/25 11:00 07/11/25 11:01 DC 07/11/25 11:02 Vital Signs Date Time Temp Pulse Resp B/P (MAP) Pulse Ox O2 Delivery O2 Flow Rate FiO2 07/11/25 10:47 98.1 95 21 164/77 98 Room Air* 0 21 07/11/25 10:36 98.8 97 18 151/75 98 Room Air 0 DX & DISP Disposition: Inpatient Decision to Admit Time: 13:21 Departure Impression: Primary Impression: GI bleed Additional Impression: Alcohol abuse Condition: Stable Referrals: SELF,REFERRAL (PCP) KYLAH KENYON MD Jul 11, 2025 10:45
[2025-07-11 10:58] LABS: IMMATURE GRANULOCYTE ABSOLUTE 0.03 K/uL (0-1); NUCLEATED RED BLOOD CELLS 0.0 % (0.0-0.19); PLATELET COUNT (AUTO) 58 K/uL (130-400); RED BLOOD CELL COUNT(AUTO) 3.70 MIL/uL (4.00-5.50); RED CELL DISTRIBUTION WIDTH 14.0 % (11.0-15.5); WHITE BLOOD COUNT (AUTO) 5.4 K/uL (4.8-10.8)
[2025-07-11 11:09] LABS: CREATININE 0.8 mg/dL (0.5-1.0); GLOMERULAR FILTR. RATE CALC 86.0 mL/min (>90); GLUCOSE,RANDOM 204.0 mg/dL (70-105); SODIUM SERUM 137.0 mmol/L (136-145); UREA NITROGEN, BLOOD 23.0 mg/dL (7-18)
[2025-07-11 11:13] LABS: ASPARTATE AMINOTRANSFERASE 36.0 U/L (10-37); CREATINE KINASE, TOTAL 50.0 U/L (21-232); TOTAL PROTEIN, SERUM 6.9 g/dL (6.0-8.3)
[2025-07-11 11:32] LABS: APPEARANCE,URINE CLEAR (CLEAR); GLUCOSE, URINE (UA) 300 mg/dL (NEGATIVE); LEUKOCYTE ESTERASE ,URINE NEGATIVE Leu/uL (NEGATIVE); NITRATE,URINE NEGATIVE (NEGATIVE); OCCULT BLOOD,URINE LARGE (NEGATIVE)
--- NOTE | 2025-07-11 11:40 | EKG ---
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
[2025-07-11 11:45] LABS: ADD UA MICROSCOPIC YES
[2025-07-11 11:48] LABS: SQUAMOUS EPITHELIAL CELL,UR FEW /HPF (0-2)
--- NOTE | 2025-07-11 13:01 | HMCIMG ---
EXAM: CT Abdomen and Pelvis Without IV contrast CLINICAL HISTORY: ABD PAIN TECHNIQUE: Axial computed tomography images of the abdomen and pelvis without intravenous contrast. CONTRAST: No IV contrast. COMPARISON: None provided. FINDINGS: LUNG BASES: The lung bases appear clear. No pleural effusions are seen. LIVER: Unremarkable. GALLBLADDER AND BILE DUCTS: Cholelithiasis versus milk of calcium layering dependently within the gallbladder lumen. No pericholecystic edema or visible biliary ductal dilatation. PANCREAS: Mild abnormal soft tissue attenuation stranding surrounding the pancreas and extending down portion of the bilateral anterior pararenal space SPLEEN: Unremarkable. ADRENAL GLANDS: Unremarkable. KIDNEYS, URETERS, AND BLADDER: The kidneys appear within normal limits. There is no hydronephrosis or hydroureter. No urinary calculi are seen. STOMACH AND BOWEL: Unremarkable appearance of the stomach and bowel. No evidence of bowel obstruction. No evidence suggesting enteritis or colitis. APPENDIX: No evidence of acute appendicitis on CT examination. PERITONEUM: No free fluid. No free air. LYMPH NODES: No lymphadenopathy is evident. REPRODUCTIVE: Unremarkable as visualized. VASCULATURE: No evidence of abdominal aortic aneurysm. More calcific atherosclerosis splenic artery BONES: No aggressive appearing osseous lesion. No acute osseous pathology evident. IMPRESSION: 1. Mild pancreatic inflammation with peripancreatic stranding. Findings concerning for pancreatitis. Recommend repeat CT abdomen pelvis with IV contrast for further evaluation 2. Cholelithiasis versus milk of calcium in the gallbladder. 3. Splenic artery calcific atherosclerosis. /[place]
--- NOTE | 2025-07-11 13:45 | HP ---
[facility] PH[facility] Date of Service: Jul 11, 2025 Time of Service: 13:45 HISTORY OF PRESENT ILLNESS: 59-year-old female with past medical history of diabetes mellitus type 2 presented to the hospital secondary to dark colored stools. The patient states her symptoms started today when she had a bowel movement she noted that episodes of melena with red color stool present. She also felt nauseated and had episodes of vomiting. She noted her vomit was dark colored with some tinge of blood present. She denied any abdominal pain, chest pain, shortness of breath, fever, chills. The patient states around one week ago she fell from her sofa. She fell on her left side and denied hitting her head. Denied any headaches, neck pain. She noted that she had bruising in her left wrist, arm after the pain. She also had some swelling in the. She did not see anyone for the pain. She currently does not take any medications at home. Denied any dysuria, shortness of breaths, syncopal episode. She has not been following a primary care provider as outpatient. She states her a few years ago and since then she has been drinking at home. She does feel depressed. She has not seen anyone for her depression. In the ER her labs were notable for white count of 5.4, hemoglobin was 12.5, [place] [address], sodium was 137, potassium was 4.3, chloride was 99, creatinine was 0.8, blood glucose was 204, total bilirubin was 1.4, AST and ALT were unremarkable, albumin was 3.3, lipase was negative at [address] abdomen pelvis done which showed mild pancreatic inflammation with peripancreatic stranding. This was concerning for pancreatitis. There was also cholelithiasis versus milk of calcium in the gallbladder. There was splenic artery calcific atherosclerosis. REVIEW OF SYSTEMS CONSTITUTIONAL: Denies fevers, chills, or night sweats. No unintentional weight loss reported. NEUROLOGICAL: Denies headache, amaurosis fugax, motor weakness, sensory deficit, vertigo/spinning sensation, gait abnormalities, or tremors. ENT: No hearing loss, otalgia, otorrhea, rhinitis, rhinorrhea, hoarseness, or sore throat. CARDIOVASCULAR: Denies any exertional angina, dyspnea on exertion, orthopnea, paroxysmal nocturnal dyspnea, palpitations, life-threatening arrhythmias, claudication. PULMONARY: Denies any shortness of breath, cough, phlegm/sputum, hemoptysis, p leuritic chest pain. GASTROINTESTINAL: Positive for melena, hematemesis, hematochezia. Denied any diarrhea, constipation GENITOURINARY: Denies frequency, urgency, nocturia, hematuria or incontinence (Storage/Irritative symptoms.) Low urinary stream, straining to void, urinary intermittency or hesitancy, splitting of the voiding stream, terminal dribbling. ENDOCRINOLOGIC: Denies polyuria, polydipsia, polyphagia or heat/cold intolerances. HEMATOLOGIC: Denies thrombophilia/previous clots, or coagulopathy/bleeding disorders. ONCOLOGIC: Denies personal history of malignancy. DERMATOLOGIC: Denies rashes or pruritus. PSYCHIATRIC: Denies any suicidal or homicidal ideation. Denies hallucinations. PAST MEDICAL HISTORY: Diabetes mellitus type 2 PAST SURGICAL HISTORY: History of surgery in the left lower leg PAST SOCIAL HISTORY: She uses marijuana daily for at least five years. She also drinks around 3-4 beers daily for at least 10 years. She denied any smoking FAMILY HISTORY: Denied any pertinent family history Coded Allergies: Penicillins (Verified Allergy, 10/25/12) PHYSICAL EXAM GENERAL APPEARANCE: The patient is awake, alert, and oriented, in no acute cardiopulmonary distress. NEUROLOGICAL: Cranial nerves II-XII grossly intact. Motor is 5/5 in bilateral upper and lower extremities proximal to distal. No sensory deficits. HEENT: Face is symmetric. Pupils are equal and reactive. Extraocular movements are intact. NECK: Supple. No JVD. No thyromegaly. No submental, submandibular, pre- /postauricular, occipital or supraclavicular lymphadenopathy. CHEST: Normal chest expansion. No Telemetry. LUNGS: Absence of any rales, rhonchi or any wheezing. CARDIOVASCULAR: Regular. S1 and S2 normal. No appreciable rubs, murmurs or gallops. ABDOMEN: Soft, nontender, and nondistended. There is no rebound, voluntary guarding, or rigidity. : Deferred. No [place]. EXTREMITIES: She has bruising in her left wrist, left arm. There is swelling noted in the left wrist and arm. SKIN: No skin breakdown. Vital Sign (Last 24 Hours) 07/11/25 13:32 Temp 98.1 Pulse 98 Resp 13 B/P (MAP) 123/79 Pulse Ox 99 O2 Delivery Room Air* O2 Flow Rate 0 FiO2 21 LABS: Laboratory: Test 07/11/25 11:19 07/11/25 11:15 07/11/25 10:53 Range/Units Urine Color LIGHT-YELLOW YELLOW Urine Appearance CLEAR CLEAR Urine pH 7.0 5.0-8.0 Urine Specific [place] 1.018 1.001-1.031 Urine Protein NEGATIVE NEGATIVE mg/dL Urine Glucose (UA) 300 H NEGATIVE mg/dL Urine Ketones 20 H NEGATIVE mg/dL Urine Occult Blood LARGE H NEGATIVE Urine Nitrate NEGATIVE NEGATIVE Urine Bilirubin NEGATIVE NEGATIVE mg/dL Urine Urobilinogen 4.0 H 0.2-1.0 mg/dL Urine Leukocyte Esterase NEGATIVE NEGATIVE [place]/uL Urine RBC 2-5 H 0-1 /HPF Urine WBC 2-5 H 0-1 /HPF Urine Squamous Epithelial Cells FEW 0-2 /HPF Urine Bacteria None None Seen /HPF Stool Occult Blood POSITIVE H NEGATIVE White Blood Count 5.4 4.8-10.8 K/uL Red Blood Count 3.70 L 4.00-5.50 MIL/uL Hemoglobin 12.5 12.0-16.0 g/dL Hematocrit 36.1 36-48 % Mean Corpuscular Volume 97.6 79-99 fL Mean Corpuscular Hemoglobin 33.8 H 27.0-33.0 pg Mean Corpuscular Hemoglobin Concent 34.6 32.0-36.0 g/dL Red Cell Distribution Width 14.0 11.0-15.5 % Platelet Count 58 L 130-400 K/uL Mean Platelet Volume 9.5 7.5-10.5 fL Immature Granulocyte % (Auto) 0.6 0-1 % Neutrophils (%) (Auto) 74.1 40.0-77.0 % Lymphocytes (%) (Auto) 15.0 L 21.0-51.0 % Monocytes (%) (Auto) 9.5 3.0-13.0 % Eosinophils (%) (Auto) 0.4 0.0-8.0 % Basophils (%) (Auto) 0.4 0.0-5.0 % Neutrophils # (Auto) 4.0 1.8-7.7 K/uL Lymphocytes # (Auto) 0.8 L 1.0-4.8 K/uL Monocytes # (Auto) 0.5 0.1-1.0 K/uL Eosinophils # (Auto) 0.02 0.00-0.70 K/uL Basophils # (Auto) 0.02 0.00-0.20 K/uL Absolute Immature Granulocyte (auto 0.03 0-1 K/uL Nucleated Red Blood Cells 0.0 0.0-0.19 % Platelet Morphology Comment See comments Sodium Level 137 136-145 mmol/L Potassium Level 4.3 3.5-5.1 mmol/L Chloride Level 99 L 101-111 mmol/L Carbon Dioxide Level 33 H 21-32 mmol/L Blood Urea Nitrogen 23 H 7-18 mg/dL Creatinine 0.8 0.5-1.0 mg/dL Glomerular Filtration Rate Calc 86 >90 mL/min Random Glucose 204 H 70-105 mg/dL Total Calcium 8.5 8.5-10.1 mg/dL Total Bilirubin 1.4 H 0.2-1.0 mg/dL Aspartate Amino Transf (AST/SGOT) 36 10-37 U/L Alanine Aminotransferase (ALT/SGPT) 46 12-78 U/L Alkaline Phosphatase 76 50-136 U/L Total Creatine Kinase 50 21-232 U/L Troponin I High Sensitivity 10 4-50 ng/L Total Protein 6.9 6.0-8.3 g/dL Albumin 3.3 L 3.5-5.0 g/dL Lipase 25 16-77 U/L Serum Alcohol < 3 0-10 mg/dL DIAGNOSTICS / RADIOLOGY: [ ] ASSESSMENT: Melena POA Hematemesis POA Thrombocytopenia POA Left arm bruising secondary to fall Mechanical fall POA Alcohol abuse POA Marijuana use POA Obesity BMI 48.8 History of diabetes Possible depression POA PLAN: - patient to be admitted to [facility] -in reference to melena/hematemesis. The patient will be NPO for now. Patient will be started octreotide drip and Protonix drip. We will check H&H q.6 hours. Transfuse blood if hemoglobin is less than seven. We will request consultation with GI -obtain a liver ultrasound to assess for cirrhosis and also evaluate gallbladder -obtain a left wrist x-ray, left arm x-ray. -patient to be started on banana bag. She will be started on CIWA protocol to assess for any withdrawals. -check a hemoglobin A1c, TSH. -obtain a psychiatric consultation -further orders per hospitalization course. Advanced Care Planning Which of the following were discussed: Hospice care: Yes __ No _x_ Therapeutic options: Yes __ No __ Advance directives: Yes __ No __ Other discussions: pt is full code Discussed with who?: patient (Patient, family or surrogates) Voluntary nature of this service was explained to the patient? Yes __x No __ Amount of time spent: 25 minutes JENNIFER Kaur MD, MD Jul 11, 2025 13:45
[2025-07-11] MEDS ORDERED: COMPOUND IV REFRIGERATED 1 EACH IVSOLN MISC PRN (14:00)
[2025-07-11] MEDS ORDERED: COMPOUND IV MISC 1 EACH IVSOLN MISC PRN (14:00)
[2025-07-11] MEDS ORDERED: PHARMACY COMMUNICATION MISC PRN (14:00)
[2025-07-11 14:05] LABS: INR 1.09 (0.85-1.15)
--- NOTE | 2025-07-11 14:13 | CONS ---
CONSULT NOTE: Reason for consult: depression Reason for medical admission: 59-year-old female with past medical history of diabetes mellitus type 2 presented to the hospital secondary to dark colored stools. The patient states her symptoms started today when she had a bowel movement she noted that episodes of melena with red color stool present. She also felt nauseated and had episodes of vomiting. She noted her vomit was dark colored with some tinge of blood present. She denied any abdominal pain, chest pain, shortness of breath, fever, chills. The patient states around one week ago she fell from her sofa. She fell on her left side and denied hitting her head. Denied any headaches, neck pain. She noted that she had bruising in her left wrist, arm after the pain. She also had some swelling in the. She did not see anyone for the pain. She currently does not take any medications at home. Denied any dysuria, shortness of breaths, syncopal episode. She has not been following a primary care provider as outpatient. She states her a few years ago and since then she has been drinking at home. She does feel depressed. She has not seen anyone for her depression. In the ER her labs were notable for white count of 5.4, hemoglobin was 12.5, [place] [address], sodium was 137, potassium was 4.3, chloride was 99, creatinine was 0.8, blood glucose was 204, total bilirubin was 1.4, AST and ALT were unremarkable, albumin was 3.3, lipase was negative at [address] abdomen pelvis done which showed mild pancreatic inflammation with peripancreatic stranding. This was concerning for pancreatitis. There was also cholelithiasis versus milk of calcium in the gallbladder. There was splenic artery calcific atherosclerosis. CC: "I've been depressed for 6 years" HPI: Patient states she has been struggling with depression for 6 years, since her . She reports prolonged depressed mood, sleeping too much, poor appetite, increased anxiety, hopelessness, helplessness, low energy, low motivations, anhedonia, guilt, difficulty with attention and concentration and isolation. She denied overt SI but she does report some nihilistic thoughts. She has not taken any medications or gotten any outpatient tx since this began 6 years ago. She has had other periods of depression in her life and she did not get tx then either. She says that she usually turns to alcohol to deal with her depression. She has tried to cut back recnetly due to having some falls and she felt she needed to slow down. She drinks 3-4 twenty-four ounce beers daily. She used to drink liquor too. She does report hx of black outs. She denied hx of DUI, seizures or DTs. She states she just feels anxious when she doesn't drinkn and she wants to start drinking as soon as she feels that. She does not use drugs. She does not smoke or use tobacco. She denied AVH or paranoia. She says she just wants to cry all the time. Patient states she takes care of her grandchild in the mornings and she doesn't drikn when she is caring for her. Her last drink was the evening of 07/10. Patient says her kids don't talk to her and she thinks they blame her for her father's . Her had cirrhosis of the liver from heavy alcohol use. He was told not to drink but he kept drinking. Her children are upset with her for continuing to drink. She does still have some supportive friends. No home psychiatric medications per medication reconciliation. Vital Signs Date Time Temp Pulse Resp B/P (MAP) Pulse Ox O2 Delivery O2 Flow Rate FiO2 07/11/25 13:32 98.1 98 13 123/79 99 Room Air* 0 21 Current Medications Medications Dose Ordered Sig/Raheel Start Time Stop Time Status Last Admin Pantoprazole Sodium 80 mg/ Sodium Chloride 100 ml @ 10 mls/hr Q10H 07/11/25 14:00 08/10/25 13:59 Acetaminophen 500 mg Q6H PRN 07/11/25 14:00 08/10/25 13:59 Chlordiazepoxide HCl 25 mg Q4H PRN 07/11/25 14:00 07/18/25 13:59 Lorazepam 1 mg Q4H PRN 07/11/25 14:00 07/18/25 13:59 Ondansetron HCl 4 mg Q4H PRN 07/11/25 14:00 08/10/25 13:59 Thiamine HCl 100 mg/Folic Acid 1 mg/Multivitamins/ Minerals 10 ml/ Sodium Chloride 1,011.2 ml @ 100 mls/ hr Q24H 07/11/25 14:00 07/14/25 00:07 Octreotide Acetate 1250 mcg/ Sodium Chloride 250 ml @ 0 mls/hr PROTOCOL 07/11/25 14:00 08/10/25 13:59 Laboratory Tests Test 07/11/25 10:53 07/11/25 11:15 07/11/25 11:19 White Blood Count 5.4 K/uL (4.8-10.8) Red Blood Count 3.70 MIL/uL (4.00-5.50) L Hemoglobin 12.5 g/dL (12.0-16.0) Hematocrit 36.1 % (36-48) Mean Corpuscular Volume 97.6 fL (79-99) Mean Corpuscular Hemoglobin 33.8 pg (27.0-33.0) H Mean Corpuscular Hemoglobin Concent 34.6 g/dL (32.0-36.0) Red Cell Distribution Width 14.0 % (11.0-15.5) Platelet Count 58 K/uL (130-400) L Mean Platelet Volume 9.5 fL (7.5-10.5) Immature Granulocyte % (Auto) 0.6 % (0-1) Neutrophils (%) (Auto) 74.1 % (40.0-77.0) Lymphocytes (%) (Auto) 15.0 % (21.0-51.0) L Monocytes (%) (Auto) 9.5 % (3.0-13.0) Eosinophils (%) (Auto) 0.4 % (0.0-8.0) Basophils (%) (Auto) 0.4 % (0.0-5.0) Neutrophils # (Auto) 4.0 K/uL (1.8-7.7) Lymphocytes # (Auto) 0.8 K/uL (1.0-4.8) L Monocytes # (Auto) 0.5 K/uL (0.1-1.0) Eosinophils # (Auto) 0.02 K/uL (0.00-0.70) Basophils # (Auto) 0.02 K/uL (0.00-0.20) Absolute Immature Granulocyte (auto 0.03 K/uL (0-1) Nucleated Red Blood Cells 0.0 % (0.0-0.19) Platelet Morphology Comment See comments Sodium Level 137 mmol/L (136-145) Potassium Level 4.3 mmol/L (3.5-5.1) Chloride Level 99 mmol/L (101-111) L Carbon Dioxide Level 33 mmol/L (21-32) H Blood Urea Nitrogen 23 mg/dL (7-18) H Creatinine 0.8 mg/dL (0.5-1.0) Glomerular Filtration Rate Calc 86 mL/min (>90) Random Glucose 204 mg/dL (70-105) H Total Calcium 8.5 mg/dL (8.5-10.1) Total Bilirubin 1.4 mg/dL (0.2-1.0) H Aspartate Amino Transf (AST/SGOT) 36 U/L (10-37) Alanine Aminotransferase (ALT/SGPT) 46 U/L (12-78) Alkaline Phosphatase 76 U/L (50-136) Total Creatine Kinase 50 U/L (21-232) Troponin I High Sensitivity 10 ng/L (4-50) Total Protein 6.9 g/dL (6.0-8.3) Albumin 3.3 g/dL (3.5-5.0) L Lipase 25 U/L (16-77) Serum Alcohol < 3 mg/dL (0-10) Stool Occult Blood POSITIVE (NEGATIVE) H Urine Color LIGHT-YELLOW (YELLOW) Urine Appearance CLEAR (CLEAR) Urine pH 7.0 (5.0-8.0) Urine Specific [place] 1.018 (1.001-1.031) Urine Protein NEGATIVE mg/dL (NEGATIVE) Urine Glucose (UA) 300 mg/dL (NEGATIVE) H Urine Ketones 20 mg/dL (NEGATIVE) H Urine Occult Blood LARGE (NEGATIVE) H Urine Nitrate NEGATIVE (NEGATIVE) Urine Bilirubin NEGATIVE mg/dL (NEGATIVE) Urine Urobilinogen 4.0 mg/dL (0.2-1.0) H Urine Leukocyte Esterase NEGATIVE [place]/uL Urine RBC 2-5 /HPF (0-1) H Urine WBC 2-5 /HPF (0-1) H Urine Squamous Epithelial Cells FEW /HPF (0-2) Urine Bacteria None /HPF (None Seen) MSE: Patient is a 59 yo female. She is alert and oriented to person, place and situation. Speech is fluent. She is tearful and distressed. Eye contact is consistent, gait is not evaluated. No AIMS or psychomotor disturbances. Mood is "not good" and affect is tearful and dysphoric. Thought process is linear and goal directed. Thought content is negative for SI, HI, AVH. Memory and cognition are grossly intact. Insight and judgment are fair. Assessment: Alcohol use disorder, moderate MDD, severe, recurrent Anxiety Recommendations: -Patient is not currently suicidal, homicidal or psychotic and she does not require inpatient psychiatric admission at this time. -Recommend start Zoloft 25 mg daily for 2-3 days and then increase to 50 mg daily. Please continue and provide RX at time of DC. -Recommend starting Gabapentin 300 mg TID for anxiety, alcohol cravings and relapse prevention. Please continue and provide RX at time of DC. -Please make referrals to outpatient psychiatry, therapy and substance abuse treatment. Please provider her with information about 12-step groups. -Consider having CM arrange a family meeting to see if kids will help support her and encourage her in her outpatient recovery. -Psychiatry signing off. *25 mins was spent [id number] with patient and 20 mins was spent on chart review and documentation ESTELA FLETCHER DO Jul 11, 2025 14:13
[2025-07-11] MEDS: THIAMINE HCL 100 MG, FOLic ACID 5 MG/ML VIAL 1 MG, M.V.I. IV [ADULT] 10 ML in 0.9%NACL ... IV SCH (14:46)
--- NOTE | 2025-07-11 14:59 | NUR ---
REPORT GIVEN TO JORGE COLLINS, KISHORE SENT WITH PATIENT
[2025-07-11 15:15] VITALS: BP 135/77; PULSE 75; RESP 20; TEMP 98.4
--- NOTE | 2025-07-11 15:21 | HMCIMG ---
EXAM: Ultrasound Abdomen, Right Upper Quadrant CLINICAL HISTORY: Cirrhosis; evaluate liver and gallbladder. TECHNIQUE: Targeted sonographic evaluation of the right upper quadrant performed with grayscale and color Doppler imaging; medical customer service representative static images archived for documentation. COMPARISON: Comparison is made with CT Abdomen and Pelvis dated 07/11/25 . FINDINGS: LIVER: Liver measures approximately 17 cm in craniocaudal dimension, mildly enlarged with increased echogenicity consistent with hepatic steatosis. No focal hepatic lesion or intrahepatic biliary dilatation. GALLBLADDER: Gallbladder wall measures 3 mm. Multiple small echogenic foci producing posterior acoustic shadowing are present, consistent with cholelithiasis (???sand-like??? stones). No gallbladder wall thickening, pericholecystic fluid, or sonographic Taylor sign to suggest cholecystitis. COMMON BILE DUCT: CBD measures 5 mm???within normal limits. PANCREAS: Visualized portions of the pancreas appear within normal limits. RIGHT KIDNEY: Measures 11.2 ??? 4.5 ??? 4.9 cm with preserved cortical echogenicity and corticomedullary differentiation. No hydronephrosis or calculus. IMPRESSION: * Mild hepatomegaly with increased echogenicity compatible with hepatic steatosis; stable compared with CT abdomen dated 07/11/25. * Cholelithiasis with multiple small calculi, unchanged from prior, without evidence of cholecystitis. * Common bile duct and right kidney within normal limits. /[place]
[2025-07-11 15:24] VITALS: O2SAT 99
--- NOTE | 2025-07-11 15:30 | HMCIMG ---
EXAM: FOREARM RADIOGRAPH, LEFT, 2 VIEWS Technique: Anteroposterior and lateral views of the left forearm were obtained. Comparison: None. Clinical Information: Fall with left arm bruising. Findings: Radius and ulna are intact with anatomic alignment; no acute fracture or dislocation identified. Elbow and wrist joints, as visualized, show no effusion or acute osseous abnormality. Soft tissues demonstrate no radiopaque foreign body. Impression: * No acute osseous abnormality of the left forearm. /[place]
--- NOTE | 2025-07-11 15:31 | HMCIMG ---
EXAM: WRIST RADIOGRAPH, LEFT, 3 VIEWS Technique: Posteroanterior, oblique, and lateral views of the left wrist were obtained. Comparison: None. Clinical Information: Fall with left arm bruising. Findings: Wrist and osseous structures: No acute fracture or dislocation; carpal alignment is normal without scapholunate widening; joint spaces are maintained; no lytic or sclerotic lesion; no periosteal reaction; no radiopaque foreign body; soft tissues without focal swelling. Impression: * No acute osseous abnormality of the left wrist. /[place]
--- NOTE | 2025-07-11 15:38 | HMCIMG ---
EXAM: ELBOW RADIOGRAPH, LEFT, 2 VIEWS Technique: Anteroposterior and lateral views of the left elbow were obtained. Comparison: None. Clinical Information: Fall with left arm bruising. Findings: Left elbow and osseous structures: No acute fracture or dislocation; alignment is anatomic; joint spaces are preserved; no lytic or sclerotic lesion; no visible joint effusion (no posterior fat-pad sign). Soft tissues: No focal soft tissue swelling or radiopaque foreign body identified. Impression: * No acute osseous abnormality of the left elbow. /[place]
[2025-07-11] MEDS: OCTREOTIDE 1,250 MCG /NS 250ML (DRIP) IV SCH (15:48)
--- NOTE | 2025-07-11 15:57 | CONS ---
GASTROENTEROLOGY CONSULTATION NOTE Date of Consultation: Jul 11, 2025 Time of Consultation: 15:57 History of Present Illness: This is a 59-year-old female with past medical history of diabetes who presented due to melena and also reported hematemesis. We were consulted for this reason. Hemoglobin trended down to 11.7 with a platelet count of 58 and INR 1.09. Total bilirubin 1.4. Positive FOBT. CT abdomen and pelvis revealing concern for pancreatitis. Cholelithiasis seen. Abdominal ultrasound revealing hepatomegaly with hepatic steatosis and cholelithiasis. Review of Systems: CONSTITUTIONAL: No malaise or change in sensation of wellbeing. ENMT: No rhinorrhea, otorrhea, sinus pain, ear ache. CARDIOVASCULAR: No angina, palpitations, orthopnea or paroxysmal dyspnea. RESPIRATORY: No SOB. GASTROINTESTINAL: No abdominal pain, nausea, vomiting, diarrhea, hematemesis, melena or change in the patient's habitual bowel movements consistency/number. GENITOURINARY: No dysuria, hematuria or change in bladder continence. MUSCULOSKELETAL: No new muscle pain or decrease in muscular strength. No new joint swelling, redness or tenderness. SKIN: No new rash. Past Medical History: PAST MEDICAL HISTORY: Diabetes mellitus type 2 PAST SURGICAL HISTORY: History of surgery in the left lower leg PAST SOCIAL HISTORY: She uses marijuana daily for at least five years. She also drinks around 3-4 beers daily for at least 10 years. She denied any smoking FAMILY HISTORY: Denied any pertinent family history Coded Allergies: Penicillins (Verified Allergy, 10/25/12) Coded Allergies: Penicillins (Verified Allergy, 10/25/12) Physical Exam: GEN: Awake, alert, oriented in person, time and place, and in no acute distress. HEENT: No sinus tenderness. Tympanic membranes were not examined. No rhinorrhea. Oral pharyngeal mucosa is pink, moist and within normal limits. Neck is supple with no cervical lymphadenopathy, thyromegaly or JVD. CHEST: Inspection, palpation and percussion of the chest were unremarkable. Lung auscultation revealed normal breath sounds bilaterally. CARDIAC: PMI is within normal limits. Heart sounds are regular. Normal S1, S2. No gallop or murmur. ABD: Soft, non-tender and not distended. No peritoneal signs on palpation. No organomegaly. Normal bowel sounds. EXT: No cyanosis or clubbing. No edema. SKIN: Intact. No rashes. JOINTS: No evidence of synovitis or acute arthritis. NEURO: Alert and oriented to name, place and person. Cranial nerve examination is unremarkable. No focal motor deficits. Normal speech. Gait is normal. Strength is normal. Vital Sign (Last 24 Hours) 07/11/25 07/11/25 15:15 15:24 Temp 98.4 Pulse 75 Resp 20 B/P (MAP) 135/77 Pulse Ox 99 O2 Delivery Room Air* O2 Flow Rate 0 FiO2 21 Laboratory: [ ] Laboratory: Test 07/11/25 14:52 07/11/25 11:19 07/11/25 11:15 07/11/25 10:53 Range/Units Hemoglobin 11.7 L 12.0-16.0 g/dL Hematocrit 34.3 L 36-48 % Urine Color LIGHT-YELLOW YELLOW Urine Appearance CLEAR CLEAR Urine pH 7.0 5.0-8.0 Urine Specific [place] 1.018 1.001-1.031 Urine Protein NEGATIVE NEGATIVE mg/dL Urine Glucose (UA) 300 H NEGATIVE mg/dL Urine Ketones 20 H NEGATIVE mg/dL Urine Occult Blood LARGE H NEGATIVE Urine Nitrate NEGATIVE NEGATIVE Urine Bilirubin NEGATIVE NEGATIVE mg/dL Urine Urobilinogen 4.0 H 0.2-1.0 mg/dL Urine Leukocyte Esterase NEGATIVE NEGATIVE [place]/uL Urine RBC 2-5 H 0-1 /HPF Urine WBC 2-5 H 0-1 /HPF Urine Squamous Epithelial Cells FEW 0-2 /HPF Urine Bacteria None None Seen /HPF Stool Occult Blood POSITIVE H NEGATIVE White Blood Count 5.4 4.8-10.8 K/uL Red Blood Count 3.70 L 4.00-5.50 MIL/uL Mean Corpuscular Volume 97.6 79-99 fL Mean Corpuscular Hemoglobin 33.8 H 27.0-33.0 pg Mean Corpuscular Hemoglobin Concent 34.6 32.0-36.0 g/dL Red Cell Distribution Width 14.0 11.0-15.5 % Platelet Count 58 L 130-400 K/uL Mean Platelet Volume 9.5 7.5-10.5 fL Immature Granulocyte % (Auto) 0.6 0-1 % Neutrophils (%) (Auto) 74.1 40.0-77.0 % Lymphocytes (%) (Auto) 15.0 L 21.0-51.0 % Monocytes (%) (Auto) 9.5 3.0-13.0 % Eosinophils (%) (Auto) 0.4 0.0-8.0 % Basophils (%) (Auto) 0.4 0.0-5.0 % Neutrophils # (Auto) 4.0 1.8-7.7 K/uL Lymphocytes # (Auto) 0.8 L 1.0-4.8 K/uL Monocytes # (Auto) 0.5 0.1-1.0 K/uL Eosinophils # (Auto) 0.02 0.00-0.70 K/uL Basophils # (Auto) 0.02 0.00-0.20 K/uL Absolute Immature Granulocyte (auto 0.03 0-1 K/uL Nucleated Red Blood Cells 0.0 0.0-0.19 % Platelet Morphology Comment See comments Sodium Level 137 136-145 mmol/L Potassium Level 4.3 3.5-5.1 mmol/L Chloride Level 99 L 101-111 mmol/L Carbon Dioxide Level 33 H 21-32 mmol/L Blood Urea Nitrogen 23 H 7-18 mg/dL Creatinine 0.8 0.5-1.0 mg/dL Glomerular Filtration Rate Calc 86 >90 mL/min Random Glucose 204 H 70-105 mg/dL Hemoglobin A1c 5.9 4.0-6.0 % Estimated Average Glucose (eAG) 123 70-126 mg/dL Total Calcium 8.5 8.5-10.1 mg/dL Total Bilirubin 1.4 H 0.2-1.0 mg/dL Aspartate Amino Transf (AST/SGOT) 36 10-37 U/L Alanine Aminotransferase (ALT/SGPT) 46 12-78 U/L Alkaline Phosphatase 76 50-136 U/L Total Creatine Kinase 50 21-232 U/L Troponin I High Sensitivity 10 4-50 ng/L Total Protein 6.9 6.0-8.3 g/dL Albumin 3.3 L 3.5-5.0 g/dL Lipase 25 16-77 U/L Thyroid Stimulating Hormone (TSH) 1.07 # 0.36-3.74 uIU/mL Serum Alcohol < 3 0-10 mg/dL Test 07/11/25 10:43 Range/Units Prothrombin Time 11.5 9.6-11.6 SEC Prothromb Time International Ratio 1.09 0.85-1.15 Activated Partial Thromboplast Time 24.2 L 26.3-35.5 SEC Current Medications Medications (Trade) Dose Ordered Sig/Raheel Route PRN Reason Start Time Stop Time Status Last Admin Dose Admin Acetaminophen (TYLenol 500MG TAB) 500 mg Q6H PRN PO MILD PAIN (1-3) 07/11/25 14:00 08/10/25 13:59 Chlordiazepoxide HCl (LIBrium 25 MG CAP) 25 mg Q4H PRN PO ALCOHOL WITHDRAWAL PROTOCOL 07/11/25 14:00 07/18/25 13:59 Lorazepam (AtiVAN) 1 mg Q4H PRN IVP ALCOHOL WITHDRAWAL PROTOCOL 07/11/25 14:00 07/18/25 13:59 Octreotide Acetate 1250 mcg/ Sodium Chloride 250 ml @ 0 mls/hr PROTOCOL IV 07/11/25 14:00 08/10/25 13:59 07/11/25 15:48 5 MLS/HR Octreotide Acetate 500 mcg/ Sodium Chloride 100 ml @ 0 mls/hr PROTOCOL IV 07/11/25 14:00 07/11/25 13:52 DC Ondansetron HCl (zoFRAN 4MG INJ) 4 mg Q4H PRN IV NAUSEA 07/11/25 14:00 08/10/25 13:59 Pantoprazole Sodium 80 mg/ Sodium Chloride 100 ml @ 10 mls/hr Q10H IV 07/11/25 14:00 08/10/25 13:59 07/11/25 15:36 10 MLS/HR Pharmacy Profile Note (Pharmacy Communication) 1 each PROTOCOL PRN MISC ETOH Withdrawal Score changes 07/11/25 14:00 07/11/25 13:47 DC Thiamine HCl 100 mg/Folic Acid 1 mg/Multivitamins/ Minerals 10 ml/ Sodium Chloride 1,011.2 ml @ 100 mls/ hr Q24H IV 07/11/25 14:00 07/14/25 00:07 07/11/25 14:46 100 MLS/HR Diagnostics / Radiology: [COPY/PASTE HERE IF NO REPORTS PLEASE DELETE SECTION] Assessment: Hematemesis Acute blood loss anemia Thrombocytopenia Cholelithiasis Plan: 1. NPO 2. EGD in AM. I have discussed the risks, benefits, alternatives, and potential complications. Questions were answered and they agree to proceed. 3. Pantoprazole drip 80 mg IV bolus and then 8 mg/hr IV infusion for 72 hours 4. Octreotide 50 mcg IV bolus and then 50 mcg/hr IV infusion for 72 hours 5. Recommend checking Hg every 6 hours and transfuse to goal Hg >7. Please do not overtransfuse 6. Please contact our service if the patient has significant bleeding such as hematemesis and we can proceed sooner with the EGD Thanks you for allowing us to participate in the care of this patient! SHERLYN [facility] Jul 11, 2025 15:57
[2025-07-11 16:10] LABS: AMPHET/METH SCREEN,URINE NEGATIVE (NEGATIVE); BARBITURATE SCREEN, URINE NEGATIVE (NEGATIVE); CANNABINOID SCREEN,URINE POSITIVE (NEGATIVE); COCAINE SCREEN,URINE NEGATIVE (NEGATIVE)
--- NOTE | 2025-07-11 16:46 | NUR ---
DCP:HOME Pt states that she currently lives with her friend in his home. Pt does not have any DME, home health, or provider services. Pt states that she is able to complete ADLs independently. Pt does not have a PCP, SW did provide her with community resources. At ID pt will want to go home and friend can assist with transportation.
--- NOTE | 2025-07-11 17:24 | NUR ---
rooming house operator celeste cole, made aware of egd with mac to be done tomorrow 07/12/[address] Glendy saldana in the am. consent collected at this time, pt voiced understanding and agree to egd procedure. signed consent placed in chart.
[2025-07-11] MEDS ORDERED: BUDE10.26 IH (18:46)
[2025-07-11 19:35] VITALS: BP 143/61; PULSE 70; RESP 20; TEMP 99.2
[2025-07-11 20:25] VITALS: O2SAT 99
[2025-07-11 23:35] VITALS: BP 129/49; PULSE 62; RESP 20; TEMP 98.7
[2025-07-12] VITALS (22 sets, daily range): BP systolic 95–156; BP diastolic 43–80; PULSE 61–90; RESP 15–20; TEMP 97.4–98.9; O2SAT 95–99
[2025-07-12 06:40] LABS: CREATININE 0.8 mg/dL (0.5-1.0); GLOMERULAR FILTR. RATE CALC 86.0 mL/min (>90); GLUCOSE,RANDOM 180.0 mg/dL (70-105); SODIUM SERUM 139.0 mmol/L (136-145); UREA NITROGEN, BLOOD 20.0 mg/dL (7-18)
--- NOTE | 2025-07-12 13:13 | PN ---
[facility] PROGRESS NOTE Date of Service: Jul 12, 2025 Time of Service: 13:10 SUBJECTIVE: 07/12 patient is seen and examined at bedside, case discussed with the RN, no acute events overnight, patient admitted to the PCU, at time of my visit comfortable in bed, alert oriented x3, hemodynamically stable, denied chest pain, shortness shortness for breath, no nausea, no vomiting, no discomfort. Hemoglobin today at 10.4. GI consultation requested, possible EGD today. Continue to follow input and recommendation. Continue the patient on banana bag. Initial CT of the abdomen mild pancreatic inflammation with peripancreatic stranding, findings concerning for pancreatitis, cholelithiasis versus milk of calcium in the gallbladder, splenic artery calcific atherosclerosis. Lipase of 25. Ultrasound abdomen mild hepatomegaly with increased echogenicity compatible with a hepatic steatosis, cholelithiasis with multiple small calculi, unchanged from prior, without evidence of cholecystitis, common bile duct and right kidney with a normal limits. X-ray of the left wrist, elbow and forearm, no acute fractures. REVIEW OF SYSTEMS CONSTITUTIONAL: Denies fevers, chills, or night sweats. No unintentional weight loss reported. NEUROLOGICAL: Denies headache, amaurosis fugax, motor weakness, sensory deficit, vertigo/spinning sensation, gait abnormalities, or tremors. ENT: No hearing loss, otalgia, otorrhea, rhinitis, rhinorrhea, hoarseness, or s ore throat. CARDIOVASCULAR: Denies any exertional angina, dyspnea on exertion, orthopnea, paroxysmal nocturnal dyspnea, palpitations, life-threatening arrhythmias, claudication. PULMONARY: Denies any shortness of breath, cough, phlegm/sputum, hemoptysis, pleuritic chest pain. GASTROINTESTINAL: Positive for melena, hematemesis, hematochezia. Denied any diarrhea, constipation GENITOURINARY: Denies frequency, urgency, nocturia, hematuria or incontinence (Storage/Irritative symptoms.) Low urinary stream, straining to void, urinary intermittency or hesitancy, splitting of the voiding stream, terminal dribbling. ENDOCRINOLOGIC: Denies polyuria, polydipsia, polyphagia or heat/cold intolerances. HEMATOLOGIC: Denies thrombophilia/previous clots, or coagulopathy/bleeding disorders. ONCOLOGIC: Denies personal history of malignancy. DERMATOLOGIC: Denies rashes or pruritus. PSYCHIATRIC: Denies any suicidal or homicidal ideation. Denies hallucinations. PHYSICAL EXAM GENERAL APPEARANCE: The patient is awake, alert, and oriented, in no acute cardiopulmonary distress. NEUROLOGICAL: Cranial nerves II-XII grossly intact. Motor is 5/5 in bilateral upper and lower extremities proximal to distal. No sensory deficits. HEENT: Face is symmetric. Pupils are equal and reactive. Extraocular movements are intact. NECK: Supple. No JVD. No thyromegaly. No submental, submandibular, pre-/postauricular, occipital or supraclavicular lymphadenopathy. CHEST: Normal chest expansion. No Telemetry. LUNGS: Absence of any rales, rhonchi or any wheezing. CARDIOVASCULAR: Regular. S1 and S2 normal. No appreciable rubs, murmurs or gallops. ABDOMEN: Soft, nontender, and nondistended. There is no rebound, voluntary guarding, or rigidity. : Deferred. No Oconnell. EXTREMITIES: She has bruising in her left wrist, left arm. There is swelling noted in the left wrist and arm. SKIN: No skin breakdown. Vital Signs (last 8hr) Date Time Temp Pulse Resp B/P (MAP) Pulse Ox O2 Delivery O2 Flow Rate FiO2 07/12/25 08:00 98.4 63 18 131/65 99 Room Air LABS: Laboratory: Test 07/12/25 09:08 07/12/25 06:41 07/12/25 03:07 07/11/25 11:19 Range/Units Hemoglobin 11.2 L 12.0-16.0 g/dL Hematocrit 32.7 L 36-48 % Whole Blood Glucose 170 H 70-110 MG/DL Sodium Level 139 136-145 mmol/L Potassium Level 4.1 3.5-5.1 mmol/L Chloride Level 103 101-111 mmol/L Carbon Dioxide Level 33 H 21-32 mmol/L Blood Urea Nitrogen 20 H 7-18 mg/dL Creatinine 0.8 0.5-1.0 mg/dL Glomerular Filtration Rate Calc 86 >90 mL/min Random Glucose 180 H 70-105 mg/dL Total Calcium 7.7 L 8.5-10.1 mg/dL Urine Color LIGHT-YELLOW YELLOW Urine Appearance CLEAR CLEAR Urine pH 7.0 5.0-8.0 Urine Specific [place] 1.018 1.001-1.031 Urine Protein NEGATIVE NEGATIVE mg/dL Urine Glucose (UA) 300 H NEGATIVE mg/dL Urine Ketones 20 H NEGATIVE mg/dL Urine Occult Blood LARGE H NEGATIVE Urine Nitrate NEGATIVE NEGATIVE Urine Bilirubin NEGATIVE NEGATIVE mg/dL Urine Urobilinogen 4.0 H 0.2-1.0 mg/dL Urine Leukocyte Esterase NEGATIVE NEGATIVE [place]/uL Urine RBC 2-5 H 0-1 /HPF Urine WBC 2-5 H 0-1 /HPF Urine Squamous Epithelial Cells FEW 0-2 /HPF Urine Bacteria None None Seen /HPF Urine Opiates Screen NEGATIVE NEGATIVE Urine Barbiturates Screen NEGATIVE NEGATIVE Urine Phencyclidine Screen NEGATIVE NEGATIVE Urine Amphetamines Screen NEGATIVE NEGATIVE Urine Benzodiazepines Screen NEGATIVE NEGATIVE Urine Cocaine Screen NEGATIVE NEGATIVE Urine Marijuana (THC) Screen POSITIVE H NEGATIVE Test 07/11/25 11:15 07/11/25 10:53 07/11/25 10:43 Range/Units Stool Occult Blood POSITIVE H NEGATIVE White Blood Count 5.4 4.8-10.8 K/uL Red Blood Count 3.70 L 4.00-5.50 MIL/uL Mean Corpuscular Volume 97.6 79-99 fL Mean Corpuscular Hemoglobin 33.8 H 27.0-33.0 pg Mean Corpuscular Hemoglobin Concent 34.6 32.0-36.0 g/dL Red Cell Distribution Width 14.0 11.0-15.5 % Platelet Count 58 L 130-400 K/uL Mean Platelet Volume 9.5 7.5-10.5 fL Immature Granulocyte % (Auto) 0.6 0-1 % Neutrophils (%) (Auto) 74.1 40.0-77.0 % Lymphocytes (%) (Auto) 15.0 L 21.0-51.0 % Monocytes (%) (Auto) 9.5 3.0-13.0 % Eosinophils (%) (Auto) 0.4 0.0-8.0 % Basophils (%) (Auto) 0.4 0.0-5.0 % Neutrophils # (Auto) 4.0 1.8-7.7 K/uL Lymphocytes # (Auto) 0.8 L 1.0-4.8 K/uL Monocytes # (Auto) 0.5 0.1-1.0 K/uL Eosinophils # (Auto) 0.02 0.00-0.70 K/uL Basophils # (Auto) 0.02 0.00-0.20 K/uL Absolute Immature Granulocyte (auto 0.03 0-1 K/uL Nucleated Red Blood Cells 0.0 0.0-0.19 % Platelet Morphology Comment See comments Hemoglobin A1c 5.9 4.0-6.0 % Estimated Average Glucose (eAG) 123 70-126 mg/dL Total Bilirubin 1.4 H 0.2-1.0 mg/dL Aspartate Amino Transf (AST/SGOT) 36 10-37 U/L Alanine Aminotransferase (ALT/SGPT) 46 12-78 U/L Alkaline Phosphatase 76 50-136 U/L Total Creatine Kinase 50 21-232 U/L Troponin I High Sensitivity 10 4-50 ng/L Total Protein 6.9 6.0-8.3 g/dL Albumin 3.3 L 3.5-5.0 g/dL Lipase 25 16-77 U/L Thyroid Stimulating Hormone (TSH) 1.07 # 0.36-3.74 uIU/mL Serum Alcohol < 3 0-10 mg/dL Prothrombin Time 11.5 9.6-11.6 SEC Prothromb Time International Ratio 1.09 0.85-1.15 Activated Partial Thromboplast Time 24.2 L 26.3-35.5 SEC Current Medications Medications (Trade) Dose Ordered Sig/Raheel Route PRN Reason Start Time Stop Time Status Last Admin Dose Admin Acetaminophen (TYLenol 500MG TAB) 500 mg Q6H PRN PO MILD PAIN (1-3) 07/11/25 14:00 08/10/25 13:59 07/11/25 21:48 500 MG Chlordiazepoxide HCl (LIBrium 25 MG CAP) 25 mg Q4H PRN PO ALCOHOL WITHDRAWAL PROTOCOL 07/11/25 14:00 07/18/25 13:59 Lorazepam (AtiVAN) 1 mg Q4H PRN IVP ALCOHOL WITHDRAWAL PROTOCOL 07/11/25 14:00 07/18/25 13:59 Octreotide Acetate 1250 mcg/ Sodium Chloride 250 ml @ 0 mls/hr PROTOCOL IV 07/11/25 14:00 08/10/25 13:59 07/11/25 15:48 5 MLS/HR Octreotide Acetate 500 mcg/ Sodium Chloride 100 ml @ 0 mls/hr PROTOCOL IV 07/11/25 14:00 07/11/25 13:52 DC Ondansetron HCl (zoFRAN 4MG INJ) 4 mg Q4H PRN IV NAUSEA 11/5/25 14:00 08/10/25 13:59 Pantoprazole Sodium 80 mg/ Sodium Chloride 100 ml @ 10 mls/hr Q10H IV 07/11/25 14:00 08/10/25 13:59 07/11/25 23:18 10 MLS/HR Pharmacy Profile Note (Pharmacy Communication) 1 each PROTOCOL PRN MISC ETOH Withdrawal Score changes 07/11/25 14:00 07/11/25 13:47 DC Thiamine HCl 100 mg/Folic Acid 1 mg/Multivitamins/ Minerals 10 ml/ Sodium Chloride 1,011.2 ml @ 100 mls/ hr Q24H IV 07/11/25 14:00 07/14/25 00:07 07/11/25 14:46 100 MLS/HR DIAGNOSTICS / RADIOLOGY: [ ] ASSESSMENT: Melena POA Hematemesis POA Thrombocytopenia POA Left arm bruising secondary to fall Mechanical fall POA Alcohol abuse POA Marijuana use POA Obesity BMI 48.8 History of diabetes Possible depression POA PLAN: patient is seen and examined at bedside, case discussed with the RN, no acute events overnight, patient admitted to the PCU, at time of my visit comfortable in bed, alert oriented x3, hemodynamically stable, denied chest pain, shortness shortness for breath, no nausea, no vomiting, no discomfort. Hemoglobin today at 10.4. GI consultation requested, possible EGD today. Continue to follow input and recommendation. Continue the patient on banana bag. Initial CT of the abdomen mild pancreatic inflammation with peripancreatic stranding, findings concerning for pancreatitis, cholelithiasis versus milk of calcium in the gallbladder, splenic artery calcific atherosclerosis. Lipase of 25. Ultrasound abdomen mild hepatomegaly with increased echogenicity compatible with a hepatic steatosis, cholelithiasis with multiple small calculi, unchanged from prior, without evidence of cholecystitis, common bile duct and right kidney with a normal limits. X-ray of the left wrist, elbow and forearm, no acute fractures. NEURO: Minimize central acting medications as possible. Fall Precautions. Well lighted room through the day and minimize interruptions through the night to prevent acute delirium. PULMONARY: Supplemental 02 as needed BiPAP as necessary, for respiratory distress Titrate Fio2 to keep Spo2 > or = 90% DuoNebs and CPT as needed IS hourly while awake for pulmonary hygiene prn Out of bed to chair as tolerated Maintain aspiration precautions at all times CARDIOVASCULAR: Follow hemodynamics. Vital signs per facility protocol GI & NUTRITION: Continue nutritional support Aspirations precautions Prokinetic agents and laxatives as needed KIDNEYS & ELECTROLYTES: Strict monitoring of intake and output Daily weights Avoid nephrotoxic agents Monitor electrolytes and replace as needed Goal urine output of 30mL/hr or 0.5mL/kg/hr Medications to be dosed according to renal function. Avoid contrast if possible ENDOCRINE: Maintain blood glucose between 100-180 at all times. Insulin sliding scale for blood glucose management Hypoglycemia and hyperglycemia protocol in place INFECTIOUS DISEASE: Trend temperature, WBC and procalcitonin level Follow cultures, deescalate antibiotics as soon as possible. Panculture if new onset fever HEMATOLOGY & COAGULATION: Monitor H&H. Keep Hgb > 7 Transfuse 1 unit of PRBC for Hgb < 7 Transfuse 1 pack of platelets of platelets < 20, 000 Watch for any signs and symptoms of bleeding SKIN: Pressure ulcer prevention per facility protocol Specialty mattress as needed ORTHO/REHAB Continue PT/OT PRN: MEDICATIONS Tylenol 650 mg po every 4 hrs for fever zofran 4 mg IV every 6 hrs for n/v Hydralazine 5 mg IV every 4 hrs systolic pressure > 160 bowel regiment: lactulose 20 gm PO BID PRN constipation Supportive measures: Continue GI and DVT prophylaxis Disposition: Pending improvement in clinical condition All questions answered time spent: > 35 min ALEJANDRINA DONALD MD Jul 12, 2025 13:13
[2025-07-12] MEDS ORDERED: MIDAZOLAM HCL 1 MG/ML 2ML VIAL ONE (13:21)
[2025-07-12] MEDS ORDERED: LIDOCAINE PF 100MG/5ML (2%) SYRINGE 5ML ONE (13:22)
[2025-07-13 03:36] VITALS: BP 183/65; PULSE 63; RESP 16; TEMP 97.8
[2025-07-13 04:35] VITALS: BP 159/74; PULSE 73; RESP 16
[2025-07-13 05:20] LABS: NUCLEATED RED BLOOD CELLS 0.0 % (0.0-0.19); PLATELET COUNT (AUTO) 54.0 K/uL (130-400); RED BLOOD CELL COUNT(AUTO) 3.02 MIL/uL (4.00-5.50); RED CELL DISTRIBUTION WIDTH 14.1 % (11.0-15.5); WHITE BLOOD COUNT (AUTO) 4.1 K/uL (4.8-10.8)
[2025-07-13 05:49] LABS: ASPARTATE AMINOTRANSFERASE 35.0 U/L (10-37); CREATININE 0.7 mg/dL (0.5-1.0); GLOMERULAR FILTR. RATE CALC 101.0 mL/min (>90); GLUCOSE,RANDOM 150.0 mg/dL (70-105); SODIUM SERUM 141.0 mmol/L (136-145); TOTAL PROTEIN, SERUM 6.1 g/dL (6.0-8.3); UREA NITROGEN, BLOOD 12.0 mg/dL (7-18)
--- NOTE | 2025-07-13 06:45 | NUR ---
Hospitalist paged for electrolyte replacement. Pending call back.
--- NOTE | 2025-07-13 06:56 | NUR ---
Orders given by Dr. Frey for potassium replacement x1. Magnesium replacement x1. Orders entered.
[2025-07-13 07:00] VITALS: BP 144/79; PULSE 65; RESP 20; TEMP 98.7
[2025-07-13] MEDS: PoTASSium chloRIDE 20MEQ ER 20 MEQ ERTAB PO ONE ×2 (08:37→13:48)
[2025-07-13] MEDS: MAGNESIUM 2GM PREMIX 50ML 50 ML IV ONE (08:37)
[2025-07-13] MEDS ORDERED: PANT40TA PO (08:56)
[2025-07-13 09:18] VITALS: O2SAT 95
[2025-07-13] MEDS ORDERED: GABA-529 PO (11:13)
[2025-07-13] MEDS ORDERED: SERT25TA PO (11:13)
--- NOTE | 2025-07-13 11:18 | DS ---
Discharge Summary Hospital Course Summary: Date of service 07/13/2025 The patient admitted to hospital July 11, 2025 with the following history of the present illness: 59-year-old female with past medical history of diabetes mellitus type 2 presented to the hospital secondary to dark colored stools. The patient states her symptoms started today when she had a bowel movement she noted that episodes of melena with red color stool present. She also felt nauseated and had episodes of vomiting. She noted her vomit was dark colored with some tinge of blood present. She denied any abdominal pain, chest pain, shortness of breath, fever, chills. The patient states around one week ago she fell from her sofa. She fell on her left side and denied hitting her head. Denied any headaches, neck pain. She noted that she had bruising in her left wrist, arm after the pain. She also had some swelling in the. She did not see anyone for the pain. She currently does not take any medications at home. Denied any dysuria, shortness of breaths, syncopal episode. She has not been following a primary c are provider as outpatient. She states her a few years ago and since then she has been drinking at home. She does feel depressed. She has not seen anyone for her depression. In the ER her labs were notable for white count of 5.4, hemoglobin was 12.5, [place] [address], sodium was 137, potassium was 4.3, chloride was 99, creatinine was 0.8, blood glucose was 204, total bilirubin was 1.4, AST and ALT were unremarkable, albumin was 3.3, lipase was negative at [address] abdomen pelvis done which showed mild pancreatic inflammation with peripancreatic stranding. This was concerning for pancreatitis. There was also cholelithiasis versus milk of calcium in the gallbladder. There was splenic artery calcific atherosclerosis. HOSPITAL COURSE 07/12 patient is seen and examined at bedside, case discussed with the RN, no acute events overnight, patient admitted to the PCU, at time of my visit comfortable in bed, alert oriented x3, hemodynamically stable, denied chest pain, shortness shortness for breath, no nausea, no vomiting, no discomfort. Hemoglobin today at 10.4. GI consultation requested, possible EGD today. Continue to follow input and recommendation. Continue the patient on banana bag. Initial CT of the abdomen mild pancreatic inflammation with peripancreatic stranding, findings concerning for pancreatitis, cholelithiasis versus milk of calcium in the gallbladder, splenic artery calcific atherosclerosis. Lipase of 25. Ultrasound abdomen mild hepatomegaly with increased echogenicity compatible with a hepatic steatosis, cholelithiasis with multiple small calculi, unchanged from prior, without evidence of cholecystitis, common bile duct and right kidney with a normal limits. X-ray of the left wrist, elbow and forearm, no acute fractures. EGD DONE 07/12/2025 FOLLOW: IMPRESSION -GRADE 2 ESOPHAGEAL VARICES. INCOMPLETELY ERADICATED. BANDED. -PORTAL HYPERTENSIVE GASTROPATHY. -NORMAL EXAMINED DUODENUM -SPECIMEN COLLECTED EVALUATED BY PSYCHIATRY, RECOMMENDED TO START ZOLOFT 25 MG P.O. DAILY FOR 2-3 DAYS, THEN INCREASE TO 50 MG P.O. DAILY, RECOMMENDED STARTING GABAPENTIN 300 MG P.O. T.I.D. FOR ANXIETY. PATIENT DENIES ANY SUICIDAL OR HOMICIDAL IDEATION. TODAY PATIENT ALERT ORIENTED X3, HEMODYNAMICALLY STABLE, PLAN FOR THE PATIENT TO BE DISCHARGED HOME TODAY. RESULTS OF ULTRASOUND OF THE ABDOMEN REVIEWED, DISCUSSED IN DETAIL WITH THE PATIENT, ALL QUESTIONS ANSWERED. PATIENT AGREED AND UNDERSTOOD THE INFORMATION PROVIDED. C [employer] Crew Chief(s): Gastroenterology service Assessment/Plan: Final diagnosis Melena POA Hematemesis POA Thrombocytopenia POA Left arm bruising secondary to fall Mechanical fall POA Alcohol abuse POA Marijuana use POA Obesity BMI 48.8 History of diabetes Possible depression POA Discharge Instructions: Patient to follow up with her primary care physician as an outpatient, return to hospital if condition changes. Patient agreed and understood the information provided. Home Medications: Reported Medications Budesonide/Formoterol Fumarate (Budesonide-Formoterol 160-4.5) 160 Mcg-4.5 Mcg/Actuation Hfa.aer.ad, 2 PUFF IH BID for 30 Days, #10.2 GM 0 Refills 07/11/25 Discontinued Scripts Nifedipine (Nifedipine ER) 30 Mg Tab.er.24, 60 MG PO DAILY for 30 Days, #30 TAB Prov:WOOD EDWARDS MD 08/15/20 Lisinopril (Lisinopril) 10 Mg Tablet, 20 MG PO DAILY for 30 Days, #30 TAB Prov:WOOD EDWARDS MD 08/15/20 Acetaminophen with Codeine (Acetaminophen-Cod #3 Tablet) 1 Each Tablet, 2 EACH PO TID PRN for PAIN LEVEL 6 TO 10 for 3 Days, #18 TAB Prov:WOOD EDWARDS MD 08/15/20 Levofloxacin (Levofloxacin) 750 Mg Tablet, 750 MG PO 1000 for 10 Days, #10 TAB Prov:WOOD EDWARDS MD 08/15/20 Time spent arranging discharge: 31-60 minutes ALEJANDRINA DONALD MD Jul 13, 2025 11:18
[2025-07-13 11:55] VITALS: BP 168/75; PULSE 66; RESP 20; TEMP 98
[2025-07-13 13:27] LABS: NUCLEATED RED BLOOD CELLS 0.0 % (0.0-0.19); PLATELET COUNT (AUTO) 76.0 K/uL (130-400); RED BLOOD CELL COUNT(AUTO) 3.53 MIL/uL (4.00-5.50); RED CELL DISTRIBUTION WIDTH 14.4 % (11.0-15.5); WHITE BLOOD COUNT (AUTO) 6.0 K/uL (4.8-10.8)
== END 2025-07-13 13:57 | disposition home or self-care (01) | DRG 369 ==
LOC: EDH 10:34 → EDHIP 10:35 → 2AH 15:07
PROVIDERS: ADMIT Internal Medicine; ATTEND Internal Medicine
PROC: 06L38CZ Occlusion of Esophageal Vein with Extraluminal Device, Via Natural or Artificial Opening Endoscopic (ICD-10-PCS; principal; 2025-07-12)
DX: I85.00 Esophageal varices without bleeding (principal); D62 Acute posthemorrhagic anemia; D69.6 Thrombocytopenia, unspecified; K76.6 Portal hypertension; K92.1 Melena; E11.9 Type 2 diabetes mellitus without complications; E66.9 Obesity, unspecified; F10.20 Alcohol dependence, uncomplicated; Z68.42 Body mass index [BMI] 45.0-49.9, adult; K31.89 Other diseases of stomach and duodenum; K76.0 Fatty (change of) liver, not elsewhere classified; F12.90 Cannabis use, unspecified, uncomplicated; S40.022A Contusion of left upper arm, initial encounter; W19.XXXA Unspecified fall, initial encounter; F41.9 Anxiety disorder, unspecified; K80.20 Calculus of gallbladder without cholecystitis without obstruction
CPT/HCPCS: 36415; 43244; 73070; 73090; 73100; 74176; 76705; 80048; 80053; 80305; 81001; 82270; 82550; 82948; 83036; 83690; 83735; 84132; 84443; 84484; 85014; 85018; 85025; 85027; 85610; 85730; 86850; 86900; 86901; 93005; 96374; 96375; 99285; A4606; G0378; J2003; J2250; J2354; J2405; J2470; J2704; J3010; J3411; J3475; J3490; J7030; J7050; A4215; A4222; A4223; A4620